=== PATIENT | male | born 1955 | race Caucasian/White ===

== ENCOUNTER 2017-06-11 08:38 | Inpatient (IN) | payer MEDICAID ==
[~2017-06-11] VITALS: Ht 170.2 cm; Wt 81.0 kg
[2017-06-11] VITALS (13 sets, daily range): BP systolic 104–172; BP diastolic 72–103; PULSE 56–84; RESP 15–21; TEMP 97–97.8; O2SAT 95–98
[~2017-06-11 08:38] MED LIST: ABAC1TAB3 PO; ATOR40TA PO; GABA300C3 PO; HYDR-2768 PO; PROP20TA3 PO; ZITH250T PO; ZOLP10TA3 PO
[2017-06-11] MEDS ORDERED: POTA10CA PO (08:57)
[2017-06-11] MEDS ORDERED: PROP20TA3 PO (08:57)
[2017-06-11] MEDS ORDERED: ABAC1TAB3 PO (08:57)
[2017-06-11] MEDS ORDERED: ATOR40TA16 PO (08:57)
[2017-06-11] MEDS ORDERED: ALPR0.5T3 PO (08:57)
[2017-06-11] MEDS ORDERED: ZOLP10TA3 PO (08:57)
[2017-06-11] MEDS ORDERED: HYDR25TA5 PO (08:57)
[2017-06-11] MEDS ORDERED: CETI10 PO (08:57)
[2017-06-11] MEDS ORDERED: GABA300C5 PO (08:57)
[2017-06-11] MEDS ORDERED: ASPIRIN 81 MG CHEW TAB PO ONE (09:00)
[2017-06-11] MEDS ORDERED: SODIUM CHLORIDE 0.9% FLUSH 10 ML FLUSH IVF PRN (09:00)
--- NOTE | 2017-06-11 09:29 | RADRPT ---
EXAM DATE/TIME: 06/11/2017 09:20 [place] COMPARISON: No previous studies available for comparison. INDICATIONS : Left chest pain for four days. MEDICAL HISTORY : Hypertension. HIV. SURGICAL HISTORY : Fusion, cervical. Neck cartilage surgery. ENCOUNTER: Initial ACUITY: 4 - 6 days PAIN SCORE: 7/10 LOCATION: Left chest FINDINGS: A single view of the chest demonstrates the lungs to be symmetrically aerated without evidence of mas s, infiltrate or effusion. The cardiomediastinal contours are unremarkable. Fixation hardware in th e lower cervical spine. Osseous structures are intact. CONCLUSION: 1. No acute cardiopulmonary disease. Karthik Bailey MD on June 11, 2017 at 9:26 Board Certified Radiologist. This report was verified electronically.
[2017-06-11 09:30] LABS: AUTOMATED NEUTROPHIL # 5.2 TH/MM3 (1.8-7.7); BASOPHIL # 0.1 TH/MM3 (0-0.2); BASOPHIL % 0.7 % (0.0-2.0); EOSINOPHIL # 0.3 TH/MM3 (0-0.4); EOSINOPHIL % 3.1 % (0.0-4.0); HEMATOCRIT 45.5 % (39.0-51.0); HEMOGLOBIN 16.1 GM/DL (13.0-17.0); LYMPH % 35.4 % (9.0-44.0); LYMPHOCYTE # 3.7 TH/MM3 (1.0-4.8); MEAN CELL VOLUME 86.7 FL (80.0-100.0); MEAN CORPUSCULAR HEMOGLOBIN 30.7 PG (27.0-34.0); MEAN CORPUSCULAR HGB CONC 35.4 % (32.0-36.0); MEAN PLATELET VOLUME 10.7 FL (7.0-11.0); MONO % 10.9 % (0.0-8.0); MONOCYTE # 1.1 TH/MM3 (0-0.9); NEUT % 49.9 % (16.0-70.0); PLATELET COUNT 190 TH/MM3 (150-450); RED BLOOD COUNT 5.25 MIL/MM3 (4.50-5.90); RED CELL DISTRIBUTION WIDTH 13.7 % (11.6-17.2); WHITE BLOOD COUNT 10.4 TH/MM3 (4.0-11.0)
[2017-06-11 09:38] LABS: PROTHROMBIN TIME - PATIENT 10.6 SEC (9.8-11.6)
--- NOTE | 2017-06-11 09:43 | PD ---
HPI Chief Complaint: Chest Pain Time Seen by Provider: 08:54 Travel History International Travel<30 days: No Contact w/Intl Traveler<30days: No Traveled to known affect area: No History of Present Illness HPI 62-year-old male with a history of hypertension, hyperlipidemia, HIV disease, presents today with complaints of intermittent chest pain since yesterday. Patient states that he has had fluttering sensation in his chest. He also reports that yesterday he had an episode of tightness and pain in his chest that nearly caused him to pass out. He states the pain radiated to his neck and jaw. There is no reported nausea or diaphoresis. Patient's not had pain like this before. The patient does have a family history of heart disease. He states his dad and brother of heart disease. States his brother in his 50s. The patient denies tobacco use. There are no other complaints at time of examination. 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) Allergies-Medications (Allergen,Severity, Reaction): Coded Allergies: No Known Allergies (Unverified Allergy, Unknown, 06/11/17) Reported Meds & Prescriptions Reported Meds & Active Scripts Active Reported Cetirizine (Cetirizine HCl) 10 Mg Tab 10 Mg PO DAILY Gabapentin 300 Mg Cap 300 Mg PO BID Alprazolam 0.5 Mg Tab 0.5 Mg PO Q4H PRN Potassium Chloride ER (Potassium Chloride) 10 Meq Cap 10 Meq PO DAILY Zolpidem (Zolpidem Tartrate) 10 Mg Tab 10 Mg PO HS PRN Atorvastatin (Atorvastatin Calcium) 40 Mg Tab 40 Mg PO HS Triumeq (Vysushjt-Iiifghyaqeaa-Gzlotujrqh) 600-50-300 Mg Tab 1 Tab PO DAILY Hazardous agent; use appropriate precautions for handling & disposal. Hydrochlorothiazide 25 Mg Tab 25 Mg PO DAILY Propranolol (Propranolol HCl) 20 Mg Tab 20 Mg PO DAILY Review of Systems Except as stated in HPI: all other systems reviewed are Neg General / Constitutional: No: Fever, Chills HENT: Positive: Neck Pain, Other (Jaw pain yesterday with the chest pain), No: Headaches Cardiovascular: Positive: Chest Pain or Discomfort (Earlier yesterday with the chest pain), Palpitations Respiratory: No: Cough, Shortness of Breath Gastrointestinal: No: Nausea, Vomiting Genitourinary: No: Frequency, Dysuria Musculoskeletal: No: Weakness, Pain Neurologic: No: Weakness, Dizziness, Headache, Change in Mentation Physical Exam Narrative GENERAL: Well-developed well-nourished male in no acute respiratory distress SKIN: Focused skin assessment warm/dry. HEAD: Atraumatic. Normocephalic. EYES: No scleral icterus. No injection or drainage. ENT: No nasal bleeding or discharge. Mucous membranes pink and moist. NECK: Trachea midline. No JVD. CARDIOVASCULAR: Regular rate and rhythm with occasional PVC. No murmur appreciated. RESPIRATORY: No accessory muscle use. Clear to auscultation. Breath sounds equal bilaterally. GASTROINTESTINAL: Abdomen soft, non-tender, nondistended. Hepatic and splenic margins not palpable. MUSCULOSKELETAL: No obvious deformities. No clubbing. No cyanosis. No edema. NEUROLOGICAL: Awake and alert. No obvious cranial nerve deficits. Motor grossly within normal limits. Normal speech. Data Data Last Documented VS Vital Signs Date Time Temp Pulse Resp B/P (MAP) Pulse Ox O2 Delivery O2 Flow Rate FiO2 06/11/17 11:06 58 16 171/90 (117) 97 Room Air 06/11/17 08:41 97.3 Orders Orders Electrocardiogram (06/11/17 08:54) Basic Metabolic Panel (Bmp) (06/11/17 08:54) Ckmb (Isoenzyme) Profile (06/11/17 08:54) Complete Blood Count With Diff (06/11/17 08:54) Magnesium (Mg) (06/11/17 08:54) Prothrombin Time / Inr (Pt) (06/11/17 08:54) Act Partial Throm Time (Ptt) (06/11/17 08:54) Troponin I (06/11/17 08:54) Chest, Single Ap (06/11/17 08:54) Ecg Monitoring (06/11/17 08:54) Bilateral Bp Monitoring (06/11/17 08:54) Iv Access Insert/Monitor (06/11/17 08:54) Oximetry (06/11/17 08:54) Oxygen Administration (06/11/17 08:54) Aspirin Chew (Aspirin Chew) (06/11/17 09:00) Sodium Chloride 0.9% Flush (Ns Flush) (06/11/17 09:00) CKMB (06/11/17 09:15) CKMB% (06/11/17 09:15) Cardiac Catheterization (06/11/17 ) Heparin Inj (Heparin Inj) (06/11/17 10:45) Heparin-D5w 25,000 U/250 Ml (Heparin-D5w (06/11/17 11:00) Cbc No Diff, Includes Plts (06/14/17 06:00) Act Partial Throm Time (Ptt) (06/11/17 17:39) Occult Blood (Hemoccult) Stool (06/11/17 10:39) Nitroglycerin 2% Oint (Nitroglycerin 2% (06/11/17 10:45) Admit To Inpatient (06/11/17 ) Ckmb (Isoenzyme) Profile (06/11/17 10:51) Ckmb (Isoenzyme) Profile (06/11/17 16:51) Ckmb (Isoenzyme) Profile (06/11/17 22:51) Troponin I (06/11/17 10:51) Troponin I (06/11/17 16:51) Troponin I (06/11/17 22:51) Electrocardiogram (06/11/17 10:51) Electrocardiogram (06/11/17 16:51) Electrocardiogram (06/11/17 22:51) ^ Obtain As Needed (06/11/17 10:51) Diet Npo Except Meds (06/11/17 Lunch) Activity Bed Rest With Brp (06/11/17 10:51) ^ Notify Of These Side Effects (06/11/17 10:51) Notify Dr: Blood Pressure (06/11/17 10:51) Notify Dr: Heart Rate (06/11/17 10:51) Teaching Record: Cardiac Educa MEHUL.Q12H (06/11/17 10:51) ^ Smoking Cessation Counseling (06/11/17 10:51) Sodium Chloride 0.9% Flush (Ns Flush) (06/11/17 21:00) Sodium Chloride 0.9% Flush (Ns Flush) (06/11/17 11:00) Nitroglycerin Sl (Nitrostat Sl) (06/11/17 11:00) Morphine Inj (Morphine Inj) (06/11/17 11:00) Docusate Sodium (Colace) (06/11/17 11:00) Ondansetron Inj (Zofran Inj) (06/11/17 11:00) Mechanical Energy Engineer / Telemetry MEHUL.Q8H (06/11/17 10:51) Metoprolol Tartrate (Lopressor) (06/11/17 21:00) Atorvastatin (Lipitor) (06/11/17 21:00) Scd Bilateral/Knee High MEHUL.BID (06/11/17 10:51) Inpatient Certification (06/11/17 ) Lipid Profile (06/11/17 10:51) Aspirin Ec (Ecotrin Ec) (06/12/17 09:00) Admit Order (Ed Use Only) (06/11/17 11:16) Labs Laboratory Tests Test 06/11/17 09:15 White Blood Count 10.4 TH/MM3 Red Blood Count 5.25 MIL/MM3 Hemoglobin 16.1 GM/DL Hematocrit 45.5 % Mean Corpuscular Volume 86.7 FL Mean Corpuscular Hemoglobin 30.7 PG Mean Corpuscular Hemoglobin Concent 35.4 % Red Cell Distribution Width 13.7 % Platelet Count 190 TH/MM3 Mean Platelet Volume 10.7 FL Neutrophils (%) (Auto) 49.9 % Lymphocytes (%) (Auto) 35.4 % Monocytes (%) (Auto) 10.9 % Eosinophils (%) (Auto) 3.1 % Basophils (%) (Auto) 0.7 % Neutrophils # (Auto) 5.2 TH/MM3 Lymphocytes # (Auto) 3.7 TH/MM3 Monocytes # (Auto) 1.1 TH/MM3 Eosinophils # (Auto) 0.3 TH/MM3 Basophils # (Auto) 0.1 TH/MM3 CBC Comment DIFF FINAL Differential Comment Prothrombin Time 10.6 SEC Prothromb Time International Ratio 1.0 RATIO Activated Partial Thromboplast Time 25.5 SEC Blood Urea Nitrogen 20 MG/DL Creatinine 1.11 MG/DL Random Glucose 116 MG/DL Calcium Level 9.6 MG/DL Magnesium Level 2.2 MG/DL Sodium Level 140 MEQ/L Potassium Level 3.6 MEQ/L Chloride Level 105 MEQ/L Carbon Dioxide Level 27.1 MEQ/L Anion Gap 8 MEQ/L Estimat Glomerular Filtration Rate 67 ML/MIN Total Creatine Kinase 266 U/L Creatine Kinase MB 19.0 NG/ML Troponin I 5.21 NG/ML MDM Medical Decision Making Medical Screen Exam Complete: Yes Emergency Medical Condition: Yes Differential Diagnosis ACS versus dysrhythmia versus musculoskeletal pain Narrative Course 62-year-old male with a history of hypertension, hyperlipidemia, HIV disease, presents today with complaints of chest pressure intermittent since yesterday. The patient also reports palpitations and fluttering in his chest. Patient's EKG showed sinus rhythm with flipped T waves in V2 3 and 4. Patient had no evidence of ST elevation. Patient's troponin came back at 5. The patient was not having chest pain at the time of my evaluation. This is a non-ST elevation myocardial infarction. He has been started on heparin and nitroglycerin paste. He is also been given aspirin on arrival. Case was discussed with Dr. hunter , on-call kiln head house operator, who will see him in consultation and likely taken to the [facility] this afternoon. The patient was admitted to Dr. Maddox, [place], who agreed to admit the patient to her service. He will be made n.p.o. Critical Care Narrative Aggregate critical care time was 45 minutes. Time to perform other separately billable procedures was not included in the critical care time. My time did not include minutes spent treating any other patients simultaneously or on activities that did not directly contribute to the patient's treatment. The services I provided to this patient were to treat and/or prevent clinically significant deterioration that could result in: I provided critical care services requiring my management, as noted below: Chart data review, documentation time, medication orders and management, vital sign assessments/reviewing monitor data, ordering and reviewing lab tests, ordering and interpreting/reviewing x-rays and diagnostic studies, care of the patient and discussion of the patient with the admitting physicians. Diagnosis Primary Impression: NSTEMI (non-ST elevated myocardial infarction) Additional Impressions: History of hypertension History of hyperlipidemia HIV by history Admitting Information Admitting Physician Requests: Admit Norbert Medley MD Jun 11, 2017 09:43
[2017-06-11 09:47] LABS: BICARBONATE 27.1 MEQ/L (21.0-32.0); BLOOD UREA NITROGEN 20 MG/DL (7-18); CALCIUM 9.6 MG/DL (8.5-10.1); CHLORIDE 105 MEQ/L (98-107); CREATININE 1.11 MG/DL (0.60-1.30); GLOMERULAR FILTRATION RATE 67 ML/MIN (>89); GLUCOSE,RANDOM 116 MG/DL (74-106); MAGNESIUM 2.2 MG/DL (1.5-2.5); SODIUM (NA) 140 MEQ/L (136-145)
[2017-06-11 10:03] LABS: TROPONIN I 5.21 NG/ML (0.02-0.05)
[2017-06-11] MEDS ORDERED: HEPARIN-D5W 25,000 U/250 ML 250 ML IV PRN ×2 (10:45→11:00)
[2017-06-11] MEDS ORDERED: NITROGLYCERIN 2% OINT 1 GM PACKET TOPICAL ONE (10:45)
[2017-06-11] MEDS ORDERED: HEPARIN SODIUM - IV 10,000 UNITS/10 ML VIAL IV ONE (10:45)
[2017-06-11] MEDS ORDERED: NITROGLYCERIN 0.4 MG SL 25 TABS/BTL SL PRN (11:00)
[2017-06-11] MEDS ORDERED: DOCUSATE SODIUM 100 MG CAP PO PRN (11:00)
[2017-06-11] MEDS ORDERED: SODIUM CHLORIDE 0.9% FLUSH 10 ML FLUSH IV FLUSH PRN (11:00)
[2017-06-11] MEDS ORDERED: ONDANSETRON HCL 4 MG/2 ML VIAL IV PUSH PRN (11:00)
[2017-06-11] MEDS ORDERED: MORPHINE SULFATE 4 MG/ML INJ IV PUSH PRN (11:00)
[2017-06-11] MEDS ORDERED: PILL SPLITTER OTHER PRN (11:30)
[2017-06-11 13:24] LABS: TROPONIN I 7.66 NG/ML (0.02-0.05)
[2017-06-11] MEDS ORDERED: LIDOCAINE HCL 1% PF 30 ML VIAL ONE (14:15)
[2017-06-11] MEDS ORDERED: HEPARIN-NS/PF FLUSH BAG 2,000 ML IV FLUSH ONE (14:16)
[2017-06-11] MEDS ORDERED: MIDAZOLAM HCL 2 MG/2 ML VIAL ONE (14:16)
[2017-06-11] MEDS ORDERED: HEPARIN SODIUM - IV 10,000 UNITS/10 ML VIAL ONE (14:17)
[2017-06-11] MEDS ORDERED: NITROGLYCERIN INJ 5 ML ONE (14:17)
[2017-06-11] MEDS ORDERED: MIDAZOLAM HCL 5 MG/5 ML VIAL ONE (14:25)
[2017-06-11] MEDS ORDERED: TICAGRELOR 90 MG TAB PO ONE (15:33)
--- NOTE | 2017-06-11 15:59 | CATHPROC ---
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 Ginette Alicea,LUIS Recorder yKlee Paredes,RT(R) Scrub Galindo Harley RCIS(BS) Procedures Performed Procedure Location (Site) Vessel Name Angiogram LV LV Ventricle Coronary Angiograms LCA Left Coronary Coronary Angiograms RCA Right Coronary Drug Eluting Inflatio LAD Mid Left Coronary Drug Eluting Inflatio LAD Prox Left Coronary L Heart Cath PTCA LAD Mid Left Coronary PTCA LAD Prox Left Coronary Wire insertion Fem Art (right) Femoral Art Equipment Time Bearing 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 DANYA MEDICAL ANGIOSEAL, FR6 VIP FR 6 Used *[id number] 14:00 MEDLINE INDUSTRIES PACK, CCL CUSTOM * Used *[id number] 14:00 Koko PACER PEN, SKIN DUAL W/ RULER * Used *[id number] 14:36 MEDTRONIC AR MOD DXTERITY CATHETER FR 5 [id number] 14:57 MEDTRONIC BALLOON, 2.0 X 20MM EUPHORA 20MM Used *[id number] 15:05 MEDTRONIC STENT, 2.5 34MM HENRI 2.5 34MM Used *[id number] 15:08 MEDTRONIC STENT, 2.5 34MM HENRI 2.5 34MM Used *[id number] 15:17 MEDTRONIC STENT, 2.75 22MM HENRI 2.75 22MM Used *[id number] 14:59 Dreamscape Blue MEDICAL 30 JENN INDEFLATOR Used *[id number] 14:49 Dreamscape Blue MEDICAL SHEATH, FR6.5 PRELUDE 11CM FR 6.5 [id number] Used *[id number] 14:00 Dreamscape Blue MEDICAL WIRE, 3MMJ .035 180CM 180CM Used *[id number] PROBE COVER, STERILE [id number] 14:00 JML [employer] * Used ULTRASOUND W/ GEL *[id number] 14:00 NAMIC MANIFOLD, 4 PORT * Used *[id number] 14:00 NAMIC TUBING, HIGH PRESSURE 48" 48" Used *[id number] 15:39 NAMIC TUBING, HIGH PRESSURE 48" 48" Used *[id number] 14:00 NYCOMED OMNIPAQUE, 350 MG, 150ML 150ML [id number] Used 14:38 NYCOMED OMNIPAQUE, 350 MG, 50ML 50ML [id number] Used [id number] 14:00 [facility] BLANKET,WARM AIR CCL * Used *[id number] 14:00 TERUMBoxed MEDICAL SHEATH, FR5 TERUMO (10CM) FR 5 Used *[id number] Equipment Model, Serial, Lot Number and Expiration Data Description Model Number Serial Number Lot Number Expiration Da te ANGIOSEAL, FR6 VIP [id number] 02-11-2018 AR MOD DXTERITY CATHETER [id number] 03-26-2020 SHEATH, FR6.5 PRELUDE 11CM [id number] 05-12-2020 STENT, 2.5 34MM HENRI [id number] 12-19-2018 STENT, 2.5 34MM HENRI [id number] 01-13-2019 STENT, 2.75 22MM HENRI [id number] 12-30-2018 History: Current Medications Medication Dosage/Unit Route Frequency Last Date/Time Taken ASA Statins (any) Beta Bronwyn History: Allergies Allergy Reaction No Known Allergies History: Risk Factors Family History of Hypertension Dyslipidemia Previous KS Previous Heart Failure Premature CAD Yes Yes Yes No No Prior Valve Prior PCI Prior CABG Surgery No No No Cerebrovascular Peripheral Artery Chronic Lung On Dialysis Diabetes Disease Disease Disease No No Yes No No History: Stress Tests Stress or Imaging Studies Performed No History: Other Current Smoker Method Quit Packs a Day Years Used Pack Years No Cigarettes 7 Years Ago 1 20 20 Labs Hgb (g/dl) Hct (%) WBC (l/cumm) Platelets (thousands) 11.60-17.00 35.00-51.00 4.00-11.00 150.00-450.00 16.1 45.5 10.4 190 Glucose (mg/dl) BUN (mg/dl) Creatinine (mg/dl) BUN:Creatinine (1:x) 74.00-106.00 7.00-18.00 0.50-1.30 10.00-20.00 116 20 1.1 18.2 Na (meq/l) K (meq/l) 136.00-145.00 3.50-5.10 140 3.6 Troponin I (ng/ml) CPK (u/l) CPK-MB (ng/ML) 0.02-0.05 26.00-308.00 0.50-3.60 7.66 309 9.1 Medication Medication Total Dose (Bolus/Oral) Medication Total Dosage/Unit 1% XYLOCAINE 20 mL BRILINTA 180 mg FENTANYL 75 mcg HEPARIN 5000 units NTG (IC) 400 mcg OXYGEN 4 l/min VERSED 4 mg Medications (Bolus/Oral) Medication Time Given Dosage/Unit Administered By Reason VERSED 06/11/2017 2:25:20 PM 2 mg Ginette Alicea 2 mg VERSED given in lab by Ginette Alicea RN in Left Antecubital via Peripheral IV. Ordered by Cole Mehta. FENTANYL 06/11/2017 2:25:27 PM 50 mcg Ginette Alicea 50 mcg FENTANYL given in lab by Ginette Alicea RN in Left Antecubital via Peripheral IV. Ordered by Cole More. VERSED 06/11/2017 2:28:32 PM 2 mg Ginette Alicea 2 mg VERSED given in lab by Ginette Alicea RN in Left Antecubital via Peripheral IV. Ordered by Cole Mehta. FENTANYL 06/11/2017 2:29:39 PM 25 mcg Ginette Alicea 25 mcg FENTANYL given in lab by Ginette Alicea RN in Left Antecubital via Peripheral IV. Ordered by Cole More. OXYGEN 06/11/2017 2:34:10 PM 4 l/min Ginette Alicea 4 l/min OXYGEN given in lab by Ginette Alicea RN via Nasal. Ordered by Cole More. 1% XYLOCAINE 06/11/2017 2:34:22 PM 20 mL Quadrat, [place] 20 mL 1% XYLOCAINE given in lab by Cole More in Right Groin via Subcutaneous. HEPARIN 06/11/2017 2:52:04 PM 5000 units Ginette Alicea 5000 units HEPARIN given in lab by Ginette Alicea, RN in Left Antecubital via Peripheral IV. Ordered by Cole More. NTG (IC) 06/11/2017 3:23:53 PM 200 mcg Cole More 200 mcg NTG (IC) given in lab by Cole More in Right Groin via Intra-coronary. NTG (IC) 06/11/2017 3:25:20 PM 200 mcg Cole More 200 mcg NTG (IC) given in lab by Cole More in Right Groin via Intra-coronary. BRILINTA 06/11/2017 3:40:00 PM 180 mg Ginette Alicea 180 mg BRILINTA given in lab by Ginette Alicea, RN via Oral. Ordered by Cole More. Medication (Drip) Medication Time Given Dosage/Unit Concentration/Unit Diluent (ml) Solution IV Solutions 06/11/2017 2:12:53 PM 50 mL (IV) NaCl .9 IV Solutions given in lab by Ginette Alicea, LUIS in Left Antecubital via Peripheral IV. Pump/Drip Jeff w using NaCl .9. Initial Case Assessment Cardiovascular HR Rhythm NIBP Chest Pain 70 SR 165/100 2 Edema Present Skin color Skin None Normal Warm Dry Circulatory - Right Pulses Dorsalis Pedis Femoral 2 2 Scale (0,1,2,3,4,d) Circulatory - Left Pulses Dorsalis Pedis Femoral 2 2 Scale (0,1,2,3,4,d) Neurological State Oriented to time-place- Alert Moves all extremities person Respiration - General Respiration Rate SpO2 (%) (B/min) 12 97 Final Case Assessment Cardiovascular HR Rhythm NIBP Chest Pain 70 SR 165/100 2 Edema Present Skin color Skin None Normal Warm Dry Circulatory - Right Pulses Dorsalis Pedis Femoral 2 2 Scale (0,1,2,3,4,d) Circulatory - Left Pulses Dorsalis Pedis Femoral 2 2 Scale (0,1,2,3,4,d) Neurological State Oriented to time-place- Alert Moves all extremities person Respiration - General Respiration Rate SpO2 (%) (B/min) 12 97 Chronological Log Time Study Chronological Log 14:12:29 Patient arrived via Bed. 14:12:30 Patient Name, D.O.B, / Armband Verified By R.N. 14:12:30 Consent signed by the physician and the patient and verified by the Painting Instructor staff. 14:12:31 Pre-op and post- op instructions given; patient acknowledges understanding of instructions. 14:12:32 Verbal Stimulation=2 Physical Stimulation=2 Airway=2 Respiration=2 TOTAL=8. (0=absent, 1=li mited, 2=present) 14:12:34 Presedation assessment performed by Painting Instructor RN. 14:12:37 Patient has been NPO for More than 6Hrs. 14:12:38 Skin Breakdown- none per pt 14:12:40 Patient Warmer Placed on the Table. 14:12:41 Shelly Prominences Protected 14:12:42 A # 20 IV was noted in the Antecubital (left). Grade = 0 14:12:53 IV Solutions given in lab by Ginette Alicea RN in Left Antecubital via Peripheral IV. Pum p/Drip Flow using NaCl .9. 14:12:54 History and physical on the chart or being dictated. Assessment: Initial Case, HR=70 BPM, Rhythm=SR, NQUC=985/100 mmhg, Chest Pain=2, Edema=None, Color=Normal, Skin = Warm, Dry Right Pulses: Chris Ped=2, Femoral=2 14:12:55 Left Pulses: Chris Ped=2, Femoral=2 Neurological: State=Alert, Ox3, BLACKWELL Respiration: Resp=12 B/min, SpO2=97 % Vitals capture started with the following parameters, Patient=Adult, Interval=5 min, Initial Pr rokgzu=066 mmHg, 14:17:26 Deflation Rate=5 mmHg, Cuff placed on Right Arm 14:18:05 HR=70 bpm, JLOB=135/100 mmhg, SpO2=97.0 %, Resp=12 B/min 14:22:10 paged 14:22:14 Bilateral groins prepped with 2% chlorhexidine, and draped after a 3 minute waiting time. 14:22:27 Reference ECG taken 14:24:04 HR=69 bpm, WCDU=892/102 mmhg, SpO2=98.0 %, Resp=12 B/min 14:25:20 2 mg VERSED given in lab by Ginette Alicea RN in Left Antecubital via Peripheral IV. Orde red by Cole More. 50 mcg FENTANYL given in lab by Ginette Alicea RN in Left Antecubital via Peripheral IV. Orde red by Argenis, 14:25:27 Cole. 14:28:15 HR=64 bpm, QRDV=171/102 mmhg, SpO2=98.0 %, Resp=11 B/min 14:28:15 Pressure channel 1 zeroed. 14:28:32 2 mg VERSED given in lab by Ginette Alicea RN in Left Antecubital via Peripheral IV. Orde red by Cole More. 25 mcg FENTANYL given in lab by Ginette Alicea RN in Left Antecubital via Peripheral IV. Orde red by Argenis, 14:29:39 Cole. Time Out. Correct patient, correct procedure, correct physician, power injector loaded with con trast with surgical team 14:32:53 present. Time Out Concurred by MD and individual staff in procedure. 14:33:12 HR=49 bpm, RNFE=316/81 mmhg, SpO2=87.0 %, Resp=20 B/min 14:33:53 Case Start 14:34:10 4 l/min OXYGEN given in lab by Ginette Alicea RN via Nasal. Ordered by Cole More. 14:34:22 20 mL 1% XYLOCAINE given in lab by Cole More in Right Groin via Subcutaneous. 14:34:45 Access site was Right Femoral Artery via ultrasound. 14:34:57 A SHEATH, FR5 TERUMO (10CM) FR 5 was advanced into the Fem Art (right) using the Percutaneo us technique. A PIGTAIL ANG. INFINITI CATHETER FR 5 was advanced over a wire. OMNIPAQUE, 350 MG, 150ML 150ML was used 14:36:37 for injections. Recorded Pressure: LV, HR=58, Condition=Condition 1 14:37:39 (Left Ventricle) LV 128/9/14 14:38:02 The LV was injected at 10 cc/sec for a total of 30. OMNIPAQUE, 350 MG, 50ML 50ML used. 14:38:09 HR=55 bpm, MHBL=872/78 mmhg, SpO2=98.0 %, Resp=11 B/min 14:40:21 Catheter was removed A JL 4.0 INFINITI CATHETER FR 5 was advanced over a wire. OMNIPAQUE, 350 MG, 150ML 150ML was us ed for 14:40:41 injections. 14:41:14 The LCA was injected and visualized at various angles. OMNIPAQUE, 350 MG, 150ML 150ML used . Recorded Pressure: Ao, HR=58, Condition=Condition 1 14:41:39 (Aorta) Ao 127/75/96 14:43:08 HR=43 bpm, FBNP=492/77 mmhg, SpO2=98.0 %, Resp=11 B/min 14:46:17 Catheter was removed A AR MOD DXTERITY CATHETER FR 5 was advanced over a wire. OMNIPAQUE, 350 MG, 150ML 150ML was us ed for 14:46:54 injections. 14:47:47 The RCA was injected and visualized at various angles. OMNIPAQUE, 350 MG, 150ML 150ML used . 14:48:53 HR=58 bpm, GQGM=136/85 mmhg, SpO2=98.0 %, Resp=11 B/min 14:49:49 Catheter was removed A SHEATH, FR6.5 PRELUDE 11CM FR 6.5 was exchanged in the Fem Art (right). This was necessary in order to 14:49:51 accomodate a larger catheter. 14:50:18 Activated Clotting Time Drawn A XBLAD 4.0 GUIDE CATHETER FR 6 was advanced over a wire. OMNIPAQUE, 350 MG, 150ML 150ML was us ed for 14:51:58 injections. 5000 units HEPARIN given in lab by Ginette Alicea, LUIS in Left Antecubital via Peripheral IV. O rdered by Argenis, 14:52:04 Cole. 14:53:04 HR=56 bpm, YYWT=938/92 mmhg, SpO2=97.0 %, Resp=11 B/min 14:54:14 ACT (Normal Range 90-180) = 170 14:54:23 A WIRE, BALANCE MIDDLEWEIGHT 190CM 190CM was inserted via Fem Art (right). 14:55:15 Interventional wire has crossed the lesion A BALLOON, 2.0 X 20MM EUPHORA 20MM was inserted over WIRE, BALANCE MIDDLEWEIGHT 190CM 190CM via the 14:57:47 Fem Art (right). 14:58:14 HR=41 bpm, RTCV=739/65 mmhg, SpO2=98.0 %, Resp=11 B/min A BALLOON, 2.0 X 20MM EUPHORA 20MM over a WIRE, BALANCE MIDDLEWEIGHT 190CM 190CM in the LAD Mid was 14:58:32 inflated using a 30 JENN INDEFLATOR at 16 jenn for 10 sec. A BALLOON, 2.0 X 20MM EUPHORA 20MM over a WIRE, BALANCE MIDDLEWEIGHT 190CM 190CM in the LAD Mid was 14:58:50 inflated using a 30 JENN INDEFLATOR at 16 jenn for 10 sec. A BALLOON, 2.0 X 20MM EUPHORA 20MM over a WIRE, BALANCE MIDDLEWEIGHT 190CM 190CM in the LAD Mid was 14:59:07 inflated using a 30 JENN INDEFLATOR at 16 jenn for 10 sec. A BALLOON, 2.0 X 20MM EUPHORA 20MM over a WIRE, BALANCE MIDDLEWEIGHT 190CM 190CM in the LAD Pro x was 14:59:19 inflated using a 30 JENN INDEFLATOR at 16 jenn for 10 sec. A BALLOON, 2.0 X 20MM EUPHORA 20MM over a WIRE, BALANCE MIDDLEWEIGHT 190CM 190CM in the LAD Pro x was 14:59:42 inflated using a 30 JENN INDEFLATOR at 16 jenn for 10 sec. 14:59:56 Balloon Removed. 15:00:55 Activated Clotting Time Drawn 15:03:09 HR=48 bpm, OTDX=230/69 mmhg, SpO2=94.0 %, Resp=11 B/min A STENT, 2.5 34MM HENRI 2.5 34MM was advanced through a XBLAD 4.0 GUIDE CATHETER FR 6 over a WIR E, 15:04:51 BALANCE MIDDLEWEIGHT 190CM 190CM. A STENT, 2.5 34MM HENRI 2.5 34MM was deployed using a 30 JENN INDEFLATOR at 12 atmospheres for 35 seconds in 15:05:42 the LAD Mid. 15:06:00 Delivery device removed 15:07:34 ACT (Normal Range 90-180) = 336 15:08:08 HR=58 bpm, YVBK=264/78 mmhg, SpO2=96.0 %, Resp=12 B/min A STENT, 2.5 34MM HENRI 2.5 34MM was advanced through a XBLAD 4.0 GUIDE CATHETER FR 6 over a WIR E, 15:10:30 BALANCE MIDDLEWEIGHT 190CM 190CM. A STENT, 2.5 34MM HENRI 2.5 34MM was deployed using a 30 JENN INDEFLATOR at 12 atmospheres for 20 seconds in 15:10:37 the LAD Prox. 15:11:14 Re-inflated the stent balloon in the LAD Prox to 13 JENN for 15 seconds. 15:13:05 HR=53 bpm, WEIR=013/78 mmhg, SpO2=98.0 %, Resp=12 B/min 15:16:17 Delivery device removed A STENT, 2.75 22MM HENRI 2.75 22MM was advanced through a XBLAD 4.0 GUIDE CATHETER FR 6 over a W SO, 15:16:21 BALANCE MIDDLEWEIGHT 190CM 190CM. 15:18:08 HR=52 bpm, UEMU=848/82 mmhg, SpO2=98.0 %, Resp=11 B/min A STENT, 2.75 22MM HENRI 2.75 22MM was deployed using a 30 JENN INDEFLATOR at 12 atmospheres for 30 seconds 15:20:17 in the LAD Prox. 15:21:23 Re-inflated the stent balloon in the LAD Prox to 15 JENN for 15 seconds. 15:22:37 Re-inflated the stent balloon in the LAD Prox to 12 JENN for 10 seconds. 15:23:24 Delivery device removed 15:23:44 HR=52 bpm, EXDP=089/82 mmhg, SpO2=98.0 %, Resp=8 B/min 15:23:53 200 mcg NTG (IC) given in lab by Cole More in Right Groin via Intra-coronary. 15:25:10 Wire removed 15:25:20 200 mcg NTG (IC) given in lab by Cole More in Right Groin via Intra-coronary. 15:26:53 Catheter was removed 15:28:00 Case End 15:28:12 HR=53 bpm, DCNN=423/69 mmhg, SpO2=95.0 %, Resp=9 B/min 15:28:17 An injection in the Fem Art (right) was made through the SHEATH, FR6.5 PRELUDE 11CM FR 6.5 . Assessment: Final Case, HR=70 BPM, Rhythm=SR, HLXV=334/100 mmhg, Chest Pain=2, Edema=None, Col or=Normal, Skin = Warm, Dry Right Pulses: Chris Ped=2, Femoral=2 15:31:46 Left Pulses: Chris Ped=2, Femoral=2 Neurological: State=Alert, Ox3, BLACKWELL Respiration: Resp=12 B/min, SpO2=97 % 15:31:54 Catheter(s) removed without difficulty 15:31:58 ANGIOSEAL, FR6 VIP FR 6 placement in the Fem Art (right) 15:32:10 Sterile dressing applied to site 15:32:15 No case complications noted. 15:32:17 Cine recording checked. 15:32:20 Bedside Report will be given. 15:32:28 Implantable Device card placed in patient's chart. 15:32:40 A Left Heart Cath was performed. 15:33:07 HR=53 bpm, TQQI=002/89 mmhg, SpO2=97.0 %, Resp=20 B/min 15:38:08 RIZY=464/87 mmhg 15:38:44 Vitals capture stopped. 15:40:00 180 mg BRILINTA given in lab by Gniette Alicea, LUIS via Oral. Ordered by Cole More. 15:43:52 Patient moved to [facility] End Study - Contrast Media Used In Study Contrast Total Opened (mL) Total Used (mL) Total Wasted (mL) Omnipaque 250 250 0 End Study - Maximum Contrast Load Max Contrast Load (mL) 361.4 End Study - Radiation Exposure Fluoro Time (minutes) 10.0 End Study - Patient Disposition Complications Transferred To Interventional Outcome No Critical Care Bed successful
[2017-06-11] MEDS ORDERED: SODIUM CHLOR 0.9% 1000 ML INJ 1,000 ML IV SCH (16:06)
[2017-06-11] MEDS ORDERED: MISC INFORMATION XX ONE (16:15)
--- NOTE | 2017-06-11 16:15 | MB ---
cc: Cole More MD DATE: 06/11/2017 HISTORY OF PRESENT ILLNESS: A 62-year-old white male with history of hypertension, dyslipidemia, HIV disease, who started having substernal chest discomfort radiating into his neck and into his jaw approximately 3 days ago. He describes the pain as tightness and was associated with fluttering in his chest. The pain was so severe that he almost passed out. He has had intermittent episodes of chest pain over the last 3 days. PAST MEDICAL HISTORY: Positive for hypertension, dyslipidemia, the patient is HIV positive, history of prostate surgery. MEDICATIONS: Include cetirizine, gabapentin, alprazolam, potassium, zolpidem, atorvastatin, Triumeq, hydrochlorothiazide and propranolol. ALLERGIES: NONE. SOCIAL HISTORY: The patient does not smoke. He quit drinking 10 years ago. 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 FAMILY HISTORY: Strongly positive for heart disease. His father and his brother both of heart disease. REVIEW OF SYSTEMS: Otherwise negative. PHYSICAL EXAMINATION: VITAL SIGNS: Blood pressure 157/91, pulse 56 and regular. HEENT: Negative, 2+ carotid upstrokes, no bruits. LUNGS: Clear. HEART: Regular with no murmur, gallop or rub. ABDOMEN: Soft. No bruits. EXTREMITIES: Without edema, 2+ distal pulses. NEUROLOGIC: Grossly nonfocal. DIAGNOSTIC DATA: EKG was reviewed and showed normal sinus rhythm, normal axis and intervals, PVCs, interventricular conduction delay and mild nonspecific STT changes. LABORATORY DATA: Hemoglobin 16.1. Potassium 3.6, creatinine 1.1, magnesium 2.2. CK 266 and 309, troponin 5.21 and 7.66. DIAGNOSES: 1. Non-ST elevation myocardial infarction. 2. Hypertension. 3. Dyslipidemia. 4. Human immunodeficiency virus disease. 5. Strong family history of coronary artery disease. DISPOSITION: Mr. Last will undergo cardiac catheterization and coronary intervention if necessary today. He understands the risks and benefits, and wishes to proceed. Cole More MD OQ/SB , 03:58 PM , 04:[address] [facility]
[2017-06-11] MEDS: LISINOPRIL 5 MG TAB PO SCH (16:22)
--- NOTE | 2017-06-11 16:49 | MR ---
cc: Cole More MD DATE: 06/11/2017 INDICATIONS: Non-ST elevation myocardial infarction, congestive heart failure, cardiomyopathy. PROCEDURES PERFORMED: 1. Retrograde left heart catheterization with left ventriculography and selective coronary angiography. 2. Angioplasty and stenting of the proximal and mid left anterior descending coronary artery. 3. Moderate sedation. ACCESS SITE: Right femoral artery. EQUIPMENT USED: A 5-Lithuanian pigtail catheter, 5-Fr JL4 and AR modified coronary catheters. XB 4.0 guide, BMW wire, 2.0 x 20 mm balloon for predilatation, 2.5 x 34 mm Mason stent at 12 atmospheres in the mid LAD, 2.5 x 34 mm Mason at 13 atmospheres to the proximal-mid LAD in an overlapping manner and 2.75 x 22 mm Mason at 15 atmospheres to the proximal LAD in an overlapping manner. MEDICATIONS: Versed IV, fentanyl IV, heparin IV, nitroglycerin IC, Brilinta 180 mg p.o. CONTRAST: Omnipaque to 250 mL. COMPLICATIONS: None. BLOOD LOSS: Less than 10 mL. METHOD OF HEMOSTASIS: Angio-Seal closure. RESULTS: HEMODYNAMICS: Heart rate 80 beats per minute. Left ventricular end diastolic pressure 80 mmHg. Left ventricle 120/8. Aorta 120/75/95. Left ventricular ejection fraction 30%, wall motion, anterior and apical severe hypokinesis, no mitral regurgitation. CORONARY ANGIOGRAPHY: Left main coronary artery patent. Left anterior descending coronary artery has 99% stenosis in the proximal portion and 80% stenosis in the mid portion. First diagonal artery is totally occluded. Second diagonal artery has 80% ostial stenosis. Left circumflex artery is a dominant vessel with 40% stenosis in the mid portion. OM1 has 50% ostial stenosis. OM2 has 90% stenosis. OM3 has 50% stenosis. OM4 is patent. Left PDA is patent. Right coronary artery has 70% stenosis in the mid portion and 99% ostial stenosis of right ventricular branch. The stenosis in the mid LAD: lesion length 15 mm. Pre-KAYLA flow 2, post-KAYLA flow 3, post-stenosis 0. Stenosis in the proximal LAD: lesion length 25 mm. Pre-KAYLA flow 2, post-KAYLA flow 3, post-stenosis 0. Post-intervention angiography revealed excellent patency of the stented segment and no evidence of dissection, thrombosis, or distal embolization. DIAGNOSES: 1. Coronary artery disease with severe stenosis of the proximal and mid left anterior descending artery. 2. Moderate to severe left ventricular dysfunction consistent with ischemic cardiomyopathy. 3. Successful angioplasty and stenting of the proximal and mid left anterior descending artery. DISPOSITION: Mr. Last will continue Brilinta for at least 1 year and baby aspirin indefinitely. We will titrate aggressive modification of his cardiac risk factors. He will be monitored on telemetry after his procedure. MD GAY Morgan/DONNELL , 04:03 PM , 04:48 PM KARIN
[2017-06-11] MEDS ORDERED: IOHEXOL 350 MG/ML 50 ML BTL (for Cath Lab) OTHER ONE (17:34)
[2017-06-11] MEDS ORDERED: IOHEXOL 350 MG/ML 100 ML BTL (for Cath Lab) OTHER ONE (17:34)
--- NOTE | 2017-06-11 17:57 | HHI.HP ---
[facility] Jaime De MD Admission Diagnosis NSTEMI, htn, hyperlipedemia, hiv Diagnoses: Travel History International Travel<30 Days: No Contact w/Intl Traveler <30 Da: No Traveled to Known Affected Are: No History of Present Illness Patient is a 62-year-old male with past medical history of HIV for 20 years, hyperlipidemia, anxiety, hypertension presented to the emergency room with complaints of chest pressure. He states that it started 3 days ago while he was at the [employer] he started experiencing some jaw achiness, he felt winded and fatigued and at times confused. He also felt his heart palpitating which made him somewhat drowsy and then confused but then he would clear up. He did complain of some radiation to his jaw and ear. He initially thought it was due to indigestion but did not think much of it. Yesterday he was tugging on a stick with his dog and ended up dropping on the floor because he felt like his "heart would pop out" into his chest,he felt hot water in his ears and also experienced chest pressure. He did also admit to experiencing some diaphoresis associated with his symptoms. He finally decided to come to the emergency room for further evaluation. Currently he is status post cardiac catheterization. He denies any chest pain, shortness of breath, nausea or vomiting at this time. He still complains of some jaw soreness but not as bad as when it occurred 3 days ago. Currently, he feels well. Review of Systems Except as stated in HPI: all other systems reviewed are Neg Past Family Social History Past Medical History HIV 20 years, hyperlipidemia, anxiety, hypertension Past Surgical History Cardiac cath in 2018, kidney surgery, shoulder surgery, neck surgery, multiple cosmetic surgeries including his brows, lid and forehead lift and chin and pectoral implants Reported Medications Reported Meds & Active Scripts Active Reported Cetirizine (Cetirizine HCl) 10 Mg Tab 10 Mg PO DAILY Gabapentin 300 Mg Cap 300 Mg PO BID Alprazolam 0.5 Mg Tab 0.5 Mg PO Q4H PRN Potassium Chloride ER (Potassium Chloride) 10 Meq Cap 10 Meq PO DAILY Zolpidem (Zolpidem Tartrate) 10 Mg Tab 10 Mg PO HS PRN Atorvastatin (Atorvastatin Calcium) 40 Mg Tab 40 Mg PO HS Triumeq (Hehpeghf-Obqbheyrhldq-Bzqtndvkis) 600-50-300 Mg Tab 1 Tab PO DAILY Hazardous agent; use appropriate precautions for handling & disposal. Hydrochlorothiazide 25 Mg Tab 25 Mg PO DAILY Propranolol (Propranolol HCl) 20 Mg Tab 20 Mg PO DAILY Allergies: Coded Allergies: No Known Allergies (Unverified Allergy, Unknown, 06/11/17) Family History Mother had bone cancer, father had 6 heart attacks and throat cancer, sister has diabetes, brother at an [place] at age 50 Social History He quit smoking 7 years ago. He used to be a heavy smoker about a pack a day for 20 years. He denies any alcohol use but when he did used to drink socially. He admits that he used to be a drug addict, used to do powder cocaine and crystal meth however he quit 12 years ago. Physical Exam Vital Signs Vital Signs Date Time Temp Pulse Resp B/P (MAP) Pulse Ox O2 Delivery O2 Flow Rate FiO2 06/11/17 17:38 63 06/11/17 17:06 18 06/11/17 16:45 84 06/11/17 16:45 97.0 57 18 130/72 (91) 97 06/11/17 14:15 06/11/17 12:00 56 15 157/91 (113) 95 06/11/17 11:06 58 16 171/90 (117) 97 Room Air 06/11/17 09:18 59 21 172/103 (126) 97 Room Air 06/11/17 08:41 97.3 65 20 171/100 (123) 98 Physical Exam GENERAL: This is a well-nourished, well-developed patient, laying in bed, appears comfortable SKIN: Right groin with dressing dry clean and intact with no hematoma noted HEAD: Atraumatic. Normocephalic. No temporal or scalp tenderness. EYES: Pupils equal round and reactive. Extraocular motions intact. No scleral icterus. No injection or drainage. ENT: Nose without drainage. Airway patent. NECK: Trachea midline. CARDIOVASCULAR: Regular rate and rhythm without murmurs RESPIRATORY: Clear to auscultation. Breath sounds equal bilaterally. No wheezes GASTROINTESTINAL: Abdomen soft, non-tender, nondistended. No guarding. MUSCULOSKELETAL: Extremities without edema. Currently on bed rest however he is able to move his extremities with no difficulty. NEUROLOGICAL: Awake and alert. Normal speech. Laboratory Laboratory Tests Test 06/11/17 09:15 06/11/17 12:00 06/11/17 12:31 06/11/17 13:45 White Blood Count 10.4 Red Blood Count 5.25 Hemoglobin 16.1 Hematocrit 45.5 Mean Corpuscular Volume 86.7 Mean Corpuscular Hemoglobin 30.7 Mean Corpuscular Hemoglobin Concent 35.4 Red Cell Distribution Width 13.7 Platelet Count 190 Mean Platelet Volume 10.7 Neutrophils (%) (Auto) 49.9 Lymphocytes (%) (Auto) 35.4 Monocytes (%) (Auto) 10.9 Eosinophils (%) (Auto) 3.1 Basophils (%) (Auto) 0.7 Neutrophils # (Auto) 5.2 Lymphocytes # (Auto) 3.7 Monocytes # (Auto) 1.1 Eosinophils # (Auto) 0.3 Basophils # (Auto) 0.1 CBC Comment DIFF FINAL Differential Comment Prothrombin Time 10.6 Prothromb Time International Ratio 1.0 Activated Partial Thromboplast Time 25.5 25.7 69.9 Blood Urea Nitrogen 20 Creatinine 1.11 Random Glucose 116 Calcium Level 9.6 Magnesium Level 2.2 Sodium Level 140 Potassium Level 3.6 Chloride Level 105 Carbon Dioxide Level 27.1 Anion Gap 8 Estimat Glomerular Filtration Rate 67 Total Creatine Kinase 266 309 Creatine Kinase MB 19.0 28.1 Troponin I 5.21 7.66 Creatine Kinase MB % 9.1 Result Diagram: 06/11/1715 06/11/1715 Imaging Last Impressions Chest X-Ray 06/11/17 0854 Signed Impressions: Service Date/Time: Sunday, June 11, 2017 09:20 - CONCLUSION: 1. No acute cardiopulmonary disease. MD Tasha Fowler VTE Risk Assessment Rayrini VTE Risk Assessment: Mod/High Risk (score >= 2) Caprini Risk Assessment Model Point Value = 1 Point Value = 2 Point Value = 3 Point Value = 5 Age 41-60 Minor surgery BMI > 25 kg/m2 Swollen legs Varicose veins or History of unexplained or recurrent spontaneous Oral contraceptives or hormone replacement Sepsis (< 1 month) Serious lung disease, including pneumonia (< 1 month) Abnormal pulmonary function Acute myocardial infarction Congestive heart failure (< 1 month) History of inflammatory bowel disease Medical patient at bed rest Age 61-74 Arthroscopic surgery Major open surgery (> 45 min) Laparoscopic surgery (> 45 min) Malignancy Confined to bed (> 72 hours) Immobilizing plaster cast Central venous access Age >= 75 History of VTE Family history of VTE Factor V Leiden Prothrombin [id number] Lupus anticoagulant Anticardiolipin antibodies Elevated serum homocysteine Heparin-induced thrombocytopenia Other congenital or acquired thrombophilia Stroke (< 1 month) Elective arthroplasty Hip, pelvis, or leg fracture Acute spinal cord injury (< 1 month) Prophylaxis Regimen Total Risk Factor Score Risk Level Prophylaxis Regimen 0-1 Low Early ambulation 2 Moderate Order ONE of the following: *Sequential Compression Device (SCD) *Heparin 5000 units SQ BID 3-4 Higher Order ONE of the following medications: *Heparin 5000 units SQ TID *Enoxaparin/Lovenox 40 mg SQ daily (WT < 150 kg, CrCl > 30 mL/min) *Enoxaparin/Lovenox 30 mg SQ daily (WT < 150 kg, CrCl > 10-29 mL/min) *Enoxaparin/Lovenox 30 mg SQ BID (WT < 150 kg, CrCl > 30 mL/min) AND/OR *Sequential Compression Device (SCD) 5 or more Highest Order ONE of the following medications: *Heparin 5000 units SQ TID (Preferred with Epidurals) *Enoxaparin/Lovenox 40 mg SQ daily (WT < 150 kg, CrCl > 30 mL/min) *Enoxaparin/Lovenox 30 mg SQ daily (WT < 150 kg, CrCl > 10-29 mL/min) *Enoxaparin/Lovenox 30 mg SQ BID (WT < 150 kg, CrCl > 30 mL/min) AND *Sequential Compression Device (SCD) Assessment and Plan Assessment and Plan NSTEMI: Patient presented with chest pressure with radiation to his jaw and ear 3 days. Upon arrival to the ER EKG showed T-wave inversion and ST depressions. ER physician because contacted the motor scooter mechanic and started him on a heparin drip. Patient was taken to the [facility] and he is currently status post cardiac cath showing coronary artery disease with severe stenosis of the proximal and mid left anterior descending artery. Moderate to severe left ventricular dysfunction consistent with ischemic cardiomyopathy. Patient has been started on Brilinta, and aspirin. Also on Lipitor, Coreg, lisinopril. Cardiology following and appreciate Dr. More's assistance HIV: Resume home medication Hypertension: Initially elevated but now back to normal. On Coreg and lisinopril. Add Vasotec as needed Hyperlipidemia: On Lipitor DVT prophylaxis: SCD/Lovenox Code Status DNR Discussed Condition With Patient and family. Dr. More, ER physician Coco Maddox MD Jun 11, 2017 17:57
[2017-06-11] MEDS ORDERED: ENALAPRILAT 1.25 MG/ML VIAL IV PUSH PRN (18:15)
--- NOTE | 2017-06-11 20:41 | EKG ---
Date Performed: 06/11/2017 Time Performed: 08:57:16 PTAGE: 62 years EKG: Sinus rhythm WITH FREQUENT VENTRICULAR PREMATURE COMPLEXES MODERATE INTRAVENTRICULAR CONDUCTION DELAY ST DEVIATIO N AND MODERATE T-WAVE ABNORMALITY, CONSIDER ANTEROLATERAL ISCHEMIA ABNORMAL ECG PREVIOUS TRACING : 10/08/2015 14.44 Since the previous tracing, no significant change noted DOCTOR: Clinton Patel Interpretating Date/Time 06/11/2017 20:40:42
[2017-06-11 20:45] LABS: TROPONIN I 27.8 NG/ML (0.02-0.05)
[2017-06-11] MEDS: SODIUM CHLORIDE 0.9% FLUSH 10 ML FLUSH IV FLUSH SCH (20:57)
[2017-06-11] MEDS: ENOXAPARIN SODIUM 40 MG/0.4 ML SYRINGE SQ SCH (20:58)
[2017-06-11] MEDS: CARVEDILOL 6.25 MG TAB PO SCH (20:58)
[2017-06-11] MEDS: ATORVASTATIN 80 MG TAB PO SCH (20:58)
[2017-06-11] MEDS ORDERED: METOPROLOL TARTRATE 25 MG TAB PO SCH ×2 (21:00)
[2017-06-11] MEDS ORDERED: ATORVASTATIN 10 MG TAB PO SCH (21:00)
--- NOTE | 2017-06-11 21:47 | EKG ---
Date Performed: 06/11/2017 Time Performed: 18:04:22 PTAGE: 62 years EKG: Sinus rhythm with interpolated PVC(s) Lateral ST-T changes are nonspecific Compared to prior electrocardiogram, N onspecific T wave changes are less marked PREVIOUS TRACING : 06/11/2017 08.57 DOCTOR: Nile Carpenter Interpretating Date/Time 06/11/2017 21:47:25
[2017-06-12] VITALS (26 sets, daily range): BP systolic 98–132; BP diastolic 60–74; PULSE 65–80; RESP 18; TEMP 97.7–98.5; O2SAT 92–97
[2017-06-12] MEDS ORDERED: ZOLPIDEM TARTRATE 10 MG TAB PO PRN (00:15)
[2017-06-12] MEDS ORDERED: ALPRAZolam 0.5 MG TAB PO PRN (00:15)
[2017-06-12] MEDS ORDERED: ZOLPIDEM TARTRATE 5 MG TAB PO PRN (00:30)
[2017-06-12] MEDS: GABAPENTIN 300 MG CAP PO SCH ×3 (00:32→20:33)
[2017-06-12 01:35] LABS: AUTOMATED NEUTROPHIL # 8.6 TH/MM3 (1.8-7.7); BASOPHIL % 0.4 % (0.0-2.0); EOSINOPHIL # 0.2 TH/MM3 (0-0.4); EOSINOPHIL % 1.5 % (0.0-4.0); HEMATOCRIT 43.9 % (39.0-51.0); HEMOGLOBIN 15.6 GM/DL (13.0-17.0); LYMPH % 16.8 % (9.0-44.0); MEAN CELL VOLUME 86.2 FL (80.0-100.0); MEAN CORPUSCULAR HEMOGLOBIN 30.6 PG (27.0-34.0); MEAN CORPUSCULAR HGB CONC 35.5 % (32.0-36.0); MEAN PLATELET VOLUME 10.7 FL (7.0-11.0); MONOCYTE # 1.2 TH/MM3 (0-0.9); NEUT % 71.3 % (16.0-70.0); PLATELET COUNT 172 TH/MM3 (150-450); RED CELL DISTRIBUTION WIDTH 13.5 % (11.6-17.2)
[2017-06-12 01:54] LABS: BICARBONATE 25.8 MEQ/L (21.0-32.0); CREATININE 1.05 MG/DL (0.60-1.30)
[2017-06-12 01:57] LABS: CHOLESTEROL/ HDL RATIO 3.89 RATIO; HDL CHOLESTEROL 34.9 MG/DL (40.0-60.0)
[2017-06-12 02:37] LABS: TROPONIN I 32.6 NG/ML (0.02-0.05)
--- NOTE | 2017-06-12 07:26 | EKG ---
Date Performed: 06/12/2017 Time Performed: 05:55:58 PTAGE: 62 years EKG: Sinus rhythm with frequent PVCs Prolonged QT interval Poor R wave progression - probable normal variant Nonspecif ic ST and T wave abnormalities Abnormal ECG No significant change from prior electrocardiogram. PREVIOUS TRACING : 06/11/2017 18.04 DOCTOR: Nile Carpenter Interpretating Date/Time 06/12/2017 07:25:31
--- NOTE | 2017-06-12 08:29 | HHI.PR ---
Subjective Remarks Patient feels well. He did not sleep very well last night and required a sleeping pill. Denies any chest pain or chest pressure, denies any nausea or vomiting. He states that he felt a little flutter on his chest last night however it is no longer there. He is tolerating a diet. Objective Vitals Vital Signs Date Time Temp Pulse Resp B/P (MAP) Pulse Ox O2 Delivery O2 Flow Rate FiO2 06/12/17 08:00 98.5 74 18 106/61 (76) 96 06/12/17 08:00 74 06/12/17 07:00 72 06/12/17 06:11 69 06/12/17 05:11 66 06/12/17 04:25 97.7 71 98/60 (73) 92 06/12/17 04:00 73 06/12/17 03:00 70 06/12/17 02:00 72 06/12/17 01:00 70 06/12/17 00:00 66 06/11/17 23:55 97.8 65 104/75 (85) 96 06/11/17 23:00 74 06/11/17 22:00 68 06/11/17 21:00 72 06/11/17 20:00 70 06/11/17 19:00 97.7 73 156/99 (118) 96 06/11/17 19:00 78 06/11/17 18:47 76 06/11/17 17:38 63 06/11/17 17:06 18 06/11/17 16:45 84 06/11/17 16:45 97.0 57 18 130/72 (91) 97 06/11/17 14:15 06/11/17 12:00 56 15 157/91 (113) 95 06/11/17 11:06 58 16 171/90 (117) 97 Room Air 06/11/17 09:18 59 21 172/103 (126) 97 Room Air 06/11/17 08:41 97.3 65 20 171/100 (123) 98 I/O 06/11/17 06/11/17 06/11/17 06/12/17 06/12/17 06/12/17 07:00 15:00 23:00 07:00 15:00 23:00 Intake Total 1578 ml 480 ml Output Total 550 ml 650 ml Balance 1028 ml -170 ml Intake Oral 120 ml 480 ml IV Total 1458 ml Output Urine Total 550 ml 650 ml Result Diagram: 06/12/17 0124 06/12/17 0124 Imaging Last Impressions Chest X-Ray 06/11/17 0854 Signed Impressions: Service Date/Time: Sunday, June 11, 2017 09:20 - CONCLUSION: 1. No acute cardiopulmonary disease. Karthik Bailey MD Objective Remarks GENERAL: This is a well-nourished, well-developed patient, laying in bed, appears comfortable SKIN: Right groin with dressing dry clean and intact with no hematoma noted CARDIOVASCULAR: Regular rate and rhythm without murmurs RESPIRATORY: Clear to auscultation. Breath sounds equal bilaterally. No wheezes GASTROINTESTINAL: Abdomen soft, non-tender, nondistended. No guarding. MUSCULOSKELETAL: Extremities without edema. Moves his extremities with no difficulty. NEUROLOGICAL: Awake and alert. Normal speech. A/P Assessment and Plan STEMI: Patient presented with chest pressure with radiation to his jaw and ear 3 days prior to admission. Upon arrival to the ER EKG showed T-wave inversion and ST depressions. ER physician because contacted the bias machine operator and started him on a heparin drip. Patient was taken to the [facility] and he is currently status post cardiac cath showing coronary artery disease with severe stenosis of the proximal and mid left anterior descending artery. Moderate to severe left ventricular dysfunction consistent with ischemic cardiomyopathy. Patient currently on Brilinta, and aspirin. Also on Lipitor, Coreg, lisinopril. Cardiology following and appreciate Dr. More's assistance HIV: on home medication Hypertension: Initially elevated but now back to normal. On Coreg and lisinopril and HCTZ. on Vasotec as needed Hyperlipidemia: On Lipitor DVT prophylaxis: SCD/Lovenox Discharge Planning awaiting clearance from Coco Morley MD June 12, 2017 08:29
[2017-06-12] MEDS ORDERED: ASPIRIN EC 81 MG TABEC PO SCH (09:00)
[2017-06-12] MEDS: HYDROCHLOROTHIAZIDE 25 MG TAB PO SCH (09:00)
[2017-06-12] MEDS ORDERED: NON-FORMULARY DRUG (Abacavir-Dolutegravir-Lamivudine (Triumeq) 1 TAB) PO SCH (09:00)
[2017-06-12] MEDS: ABACAVIR SULFATE 300 MG TAB PO SCH (09:06)
[2017-06-12] MEDS: DOLUTEGRAVIR SODIUM 50 MG TAB PO SCH (09:07)
[2017-06-12] MEDS: POTASSIUM CHLORIDE 10 MEQ CAP PO SCH (09:09)
[2017-06-12] MEDS: LISINOPRIL 5 MG TAB PO SCH (09:09)
[2017-06-12] MEDS: TICAGRELOR 90 MG TAB PO SCH ×2 (09:10→20:33)
[2017-06-12] MEDS: CARVEDILOL 6.25 MG TAB PO SCH ×2 (09:10→20:32)
[2017-06-12] MEDS: ASPIRIN 81 MG CHEW TAB PO SCH (09:11)
[2017-06-12] MEDS: SODIUM CHLORIDE 0.9% FLUSH 10 ML FLUSH IV FLUSH SCH ×2 (09:11→20:34)
--- NOTE | 2017-06-12 18:55 | PD.CARD.PN ---
Subjective Subjective Remarks No CP or SOB, feels better Objective Medications Current Medications Medications (Trade) Dose Ordered Sig/Sam Route Start Time Stop Time Status Last Admin (NS Flush) 2 ml BID IV FLUSH 06/11/17 21:00 06/12/17 09:11 (NS Flush) 2 ml UNSCH PRN IV FLUSH 06/11/17 11:00 (Nitrostat Sl) 0.4 mg Q5M PRN SL 06/11/17 11:00 (Morphine Inj) 2 mg Q30M PRN IV PUSH 06/11/17 11:00 (Colace) 100 mg BID PRN PO 06/11/17 11:00 06/12/17 14:14 (Zofran Inj) 4 mg Q6H PRN IV PUSH 06/11/17 11:00 (Pill Splitter) 1 ea UNSCH PRN OTHER 06/11/17 11:30 (Lipitor) 80 mg HS PO 06/11/17 21:00 06/11/17 20:58 (Aspirin Chew) 81 mg DAILY PO 06/12/17 09:00 06/12/17 09:11 (Brilinta) 90 mg BID PO 06/12/17 09:00 06/12/17 09:10 (Coreg) 6.25 mg BID PO 06/11/17 21:00 06/12/17 09:10 (Prinivil) 5 mg DAILY PO 06/11/17 16:15 06/12/17 09:09 (Vasotec Inj) 1.25 mg Q6H PRN IV PUSH 06/11/17 18:15 (Lovenox Inj) 40 mg Q24H SQ 06/11/17 20:00 06/11/17 20:58 (Xanax) 0.5 mg Q4H PRN PO 06/12/17 00:15 (Neurontin) 300 mg BID PO 06/12/17 00:15 06/12/17 09:09 (Hydrodiuril) 25 mg DAILY PO 06/12/17 09:00 06/12/17 09:00 (KCl) 10 meq DAILY PO 06/12/17 09:00 06/12/17 09:09 (Ziagen) 600 mg DAILY PO 06/12/17 09:00 06/12/17 09:06 (Epivir) 300 mg DAILY PO 06/12/17 09:00 06/12/17 09:08 (Ambien) 10 mg HS PRN PO 06/12/17 00:30 06/12/17 00:32 Vital Signs / I&O Vital Signs Date Time Temp Pulse Resp B/P (MAP) Pulse Ox O2 Delivery O2 Flow Rate FiO2 06/12/17 17:00 71 06/12/17 16:00 68 06/12/17 16:00 98.5 74 18 132/74 (93) 96 06/12/17 15:00 65 06/12/17 14:00 71 06/12/17 13:00 68 06/12/17 12:00 70 06/12/17 11:21 98.4 67 18 124/62 (82) 96 06/12/17 11:00 67 06/12/17 10:00 70 06/12/17 09:00 68 06/12/17 08:00 98.5 74 18 106/61 (76) 96 06/12/17 08:00 74 06/12/17 07:00 72 06/12/17 06:11 69 06/12/17 05:11 66 06/12/17 04:25 97.7 71 98/60 (73) 92 06/12/17 04:00 73 06/12/17 03:00 70 06/12/17 02:00 72 06/12/17 01:00 70 06/12/17 00:00 66 06/11/17 23:55 97.8 65 104/75 (85) 96 06/11/17 23:00 74 06/11/17 22:00 68 06/11/17 21:00 72 06/11/17 20:00 70 06/11/17 19:00 97.7 73 156/99 (118) 96 06/11/17 19:00 78 06/11/17 18:47 76 I/O 06/11/17 06/11/17 06/11/17 06/12/17 06/12/17 06/12/17 07:00 15:00 23:00 07:00 15:00 23:00 Intake Total 1578 ml 480 ml 1080 ml Output Total 550 ml 650 ml 875 ml Balance 1028 ml -170 ml 205 ml Intake Oral 120 ml 480 ml 1080 ml IV Total 1458 ml Output Urine Total 550 ml 650 ml 875 ml # Bowel Movements 0 Physical Exam GENERAL: In NAD SKIN: Warm and dry. HEAD: Normocephalic. EYES: No scleral icterus. No injection or drainage. NECK: Supple, trachea midline. No JVD or lymphadenopathy. CARDIOVASCULAR: Regular rate and rhythm without murmurs, gallops, or rubs. RESPIRATORY: Breath sounds equal bilaterally. No accessory muscle use. GASTROINTESTINAL: Abdomen soft, non-tender, nondistended. MUSCULOSKELETAL: No cyanosis, or edema. Groin stable Laboratory Laboratory Tests Test 06/11/17 19:15 06/12/17 01:24 Activated Partial Thromboplast Time 27.9 SEC Total Creatine Kinase 437 U/L 378 U/L Creatine Kinase MB 43.1 NG/ML 30.4 NG/ML Creatine Kinase MB % 9.9 % 8.0 % Troponin I 27.80 NG/ML 32.60 NG/ML White Blood Count 12.0 TH/MM3 Red Blood Count 5.10 MIL/MM3 Hemoglobin 15.6 GM/DL Hematocrit 43.9 % Mean Corpuscular Volume 86.2 FL Mean Corpuscular Hemoglobin 30.6 PG Mean Corpuscular Hemoglobin Concent 35.5 % Red Cell Distribution Width 13.5 % Platelet Count 172 TH/MM3 Mean Platelet Volume 10.7 FL Neutrophils (%) (Auto) 71.3 % Lymphocytes (%) (Auto) 16.8 % Monocytes (%) (Auto) 10.0 % Eosinophils (%) (Auto) 1.5 % Basophils (%) (Auto) 0.4 % Neutrophils # (Auto) 8.6 TH/MM3 Lymphocytes # (Auto) 2.0 TH/MM3 Monocytes # (Auto) 1.2 TH/MM3 Eosinophils # (Auto) 0.2 TH/MM3 Basophils # (Auto) 0.0 TH/MM3 CBC Comment DIFF FINAL Differential Comment Blood Urea Nitrogen 17 MG/DL Creatinine 1.05 MG/DL Random Glucose 116 MG/DL Calcium Level 9.0 MG/DL Sodium Level 139 MEQ/L Potassium Level 3.3 MEQ/L Chloride Level 105 MEQ/L Carbon Dioxide Level 25.8 MEQ/L Anion Gap 8 MEQ/L Estimat Glomerular Filtration Rate 72 ML/MIN Triglycerides Level 167 MG/DL Cholesterol Level 136 MG/DL LDL Cholesterol 68 MG/DL HDL Cholesterol 34.9 MG/DL Cholesterol/HDL Ratio 3.89 RATIO Assessment and Plan Problem List: (1) NSTEMI (non-ST elevated myocardial infarction) ICD Codes: I21.4 - Non-ST elevation (NSTEMI) myocardial infarction Status: Acute (2) CAD (coronary artery disease) ICD Codes: I25.10 - Atherosclerotic heart disease of [place] coronary artery without angina pectoris (3) Stented coronary artery ICD Codes: Z95.5 - Presence of coronary angioplasty implant and graft (4) Ischemic cardiomyopathy ICD Codes: I25.5 - Ischemic cardiomyopathy (5) History of hypertension ICD Codes: Z86.79 - Personal history of other diseases of the circulatory system Status: Acute (6) History of hyperlipidemia ICD Codes: Z86.39 - Personal history of other endocrine, nutritional and metabolic disease Status: Acute (7) HIV (human immunodeficiency virus infection) ICD Codes: B20 - Human immunodeficiency virus [HIV] disease Assessment and Plan No angina or CHF. Infrequent PVCs. Continue Brilinta for 1 year and baby ASA indefinitely. Continue beta kimani, GUILLERMO inhibitor, and statin. Continue tx for CHF. Aggressive risk factor modification. Increase activity. Home tomorrow if stable. Recommend echo in 3 months to reevaluate LV fx. F/u w PCP and cardiology near his home in [place]. Cole More MD June 12, 2017 18:55
[2017-06-12] MEDS: ENOXAPARIN SODIUM 40 MG/0.4 ML SYRINGE SQ SCH (20:32)
[2017-06-12] MEDS: ATORVASTATIN 80 MG TAB PO SCH (20:33)
[2017-06-13] VITALS (11 sets, daily range): BP systolic 118–141; BP diastolic 60–67; PULSE 61–77; RESP 18; TEMP 97.8–98.3; O2SAT 92–97
[2017-06-13] MEDS ORDERED: ASPI81 PO (08:07)
[2017-06-13] MEDS ORDERED: CARV6.25 PO (08:07)
[2017-06-13] MEDS ORDERED: BRIL90TA PO (08:07)
[2017-06-13] MEDS ORDERED: ATOR80TA45 PO (08:07)
[2017-06-13] MEDS ORDERED: LISI10TA3 PO (08:07)
--- NOTE | 2017-06-13 08:34 | HHI.PR ---
Subjective Remarks Pt had one episode of nausea this morning which has now resolved. Denies any Chest pains, SOB, states to me that he had a sensation of flutter overnight but none at this time. Objective Vitals Vital Signs Date Time Temp Pulse Resp B/P (MAP) Pulse Ox O2 Delivery O2 Flow Rate FiO2 06/13/17 07:00 71 06/13/17 06:02 68 06/13/17 05:13 69 06/13/17 04:19 98.3 73 141/67 (91) 92 06/13/17 04:18 71 06/13/17 03:00 73 06/13/17 02:13 76 06/13/17 01:00 64 06/13/17 00:05 98.3 77 126/67 (86) 96 06/13/17 00:00 70 06/12/17 23:00 70 06/12/17 22:00 70 06/12/17 21:00 68 06/12/17 20:00 72 06/12/17 19:00 98.0 71 128/72 (90) 97 06/12/17 19:00 80 06/12/17 18:00 74 06/12/17 17:00 71 06/12/17 16:00 68 06/12/17 16:00 98.5 74 18 132/74 (93) 96 06/12/17 15:00 65 06/12/17 14:00 71 06/12/17 13:00 68 06/12/17 12:00 70 06/12/17 11:21 98.4 67 18 124/62 (82) 96 06/12/17 11:00 67 06/12/17 10:00 70 06/12/17 09:00 68 I/O 06/12/17 06/12/17 06/12/17 06/13/17 06/13/17 06/13/17 06:59 14:59 22:59 06:59 14:59 22:59 Intake Total 480 ml 1080 ml 240 ml Output Total 650 ml 875 ml 580 ml Balance -170 ml 205 ml -340 ml Intake Oral 480 ml 1080 ml 240 ml Output Urine Total 650 ml 875 ml 580 ml # Bowel Movements 0 1 Result Diagram: 06/12/17 0124 06/12/17 0124 Imaging Last Impressions Chest X-Ray 06/11/17 0854 Signed Impressions: Service Date/Time: Sunday, June 11, 2017 09:20 - CONCLUSION: 1. No acute cardiopulmonary disease. Karthik Bailey MD Objective Remarks GENERAL: sitting up on recliner CARDIOVASCULAR: Regular rate and rhythm without murmurs RESPIRATORY: Clear to auscultation. Breath sounds equal bilaterally. MUSCULOSKELETAL: Moves his extremities with no difficulty. NEUROLOGICAL: Awake and alert. Normal speech. A/P Assessment and Plan STEMI: Patient presented with chest pressure with radiation to his jaw and ear 3 days prior to admission. Upon arrival to the ER EKG showed T-wave inversion and ST depressions. ER physician because contacted the wire machine cutter and started him on a heparin drip. Patient was taken to the [facility] and he is currently status post cardiac cath showing coronary artery disease with severe stenosis of the proximal and mid left anterior descending artery. Moderate to severe left ventricular dysfunction consistent with ischemic cardiomyopathy. Patient currently on Brilinta, and aspirin. Also on Lipitor, Coreg, lisinopril. Cardiology following and appreciate Dr. More's assistance. Scripts in chart. Anticipate d/c later today after Dr. More sees pt and clears him. Pt to f/u w PCP and cards as an outpatient. HIV: on home medication Hypertension: continue BP meds Hyperlipidemia: On Lipitor DVT prophylaxis: SCD/Lovenox Discharge Planning ok to d/c home once cleared by Coco Maddox MD June 13, 2017 08:34
[2017-06-13] MEDS ORDERED: LISINOPRIL 10 MG TAB PO SCH (09:00)
[2017-06-13] MEDS: ABACAVIR SULFATE 300 MG TAB PO SCH (09:25)
[2017-06-13] MEDS: DOLUTEGRAVIR SODIUM 50 MG TAB PO SCH (09:25)
[2017-06-13] MEDS: CARVEDILOL 6.25 MG TAB PO SCH (09:26)
[2017-06-13] MEDS: POTASSIUM CHLORIDE 10 MEQ CAP PO SCH (09:26)
[2017-06-13] MEDS: HYDROCHLOROTHIAZIDE 25 MG TAB PO SCH (09:26)
[2017-06-13] MEDS: TICAGRELOR 90 MG TAB PO SCH (09:26)
[2017-06-13] MEDS: ASPIRIN 81 MG CHEW TAB PO SCH (09:26)
[2017-06-13] MEDS: GABAPENTIN 300 MG CAP PO SCH (09:27)
[2017-06-13] MEDS: SODIUM CHLORIDE 0.9% FLUSH 10 ML FLUSH IV FLUSH SCH (09:27)
--- NOTE | 2017-06-13 21:48 | PD.CARD.PN ---
Subjective Subjective Remarks No CP or SOB, few palpitations Objective Vital Signs / I&O Vital Signs Date Time Temp Pulse Resp B/P (MAP) Pulse Ox O2 Delivery O2 Flow Rate FiO2 06/13/17 08:00 97.8 61 18 118/60 (79) 97 06/13/17 08:00 68 06/13/17 07:00 71 06/13/17 06:02 68 06/13/17 05:13 69 06/13/17 04:19 98.3 73 141/67 (91) 92 06/13/17 04:18 71 06/13/17 03:00 73 06/13/17 02:13 76 06/13/17 01:00 64 06/13/17 00:05 98.3 77 126/67 (86) 96 06/13/17 00:00 70 06/12/17 23:00 70 06/12/17 22:00 70 I/O 06/12/17 06/12/17 06/12/17 06/13/17 06/13/17 06/13/17 07:00 15:00 23:00 07:00 15:00 23:00 Intake Total 480 ml 1080 ml 240 ml 450 ml Output Total 650 ml 875 ml 580 ml 400 ml Balance -170 ml 205 ml -340 ml 50 ml Intake Oral 480 ml 1080 ml 240 ml 450 ml Output Urine Total 650 ml 875 ml 580 ml 400 ml # Bowel Movements 0 1 0 Physical Exam GENERAL: In NAD SKIN: Warm and dry. HEAD: Normocephalic. EYES: No scleral icterus. No injection or drainage. NECK: Supple, trachea midline. No JVD or lymphadenopathy. CARDIOVASCULAR: Regular rate and rhythm without murmurs, gallops, or rubs. RESPIRATORY: Breath sounds equal bilaterally. No accessory muscle use. GASTROINTESTINAL: Abdomen soft, non-tender, nondistended. MUSCULOSKELETAL: No cyanosis, or edema. Groin stable Assessment and Plan Problem List: (1) NSTEMI (non-ST elevated myocardial infarction) ICD Codes: I21.4 - Non-ST elevation (NSTEMI) myocardial infarction Status: Acute (2) CAD (coronary artery disease) ICD Codes: I25.10 - Atherosclerotic heart disease of [place] coronary artery without angina pectoris (3) Stented coronary artery ICD Codes: Z95.5 - Presence of coronary angioplasty implant and graft (4) Ischemic cardiomyopathy ICD Codes: I25.5 - Ischemic cardiomyopathy (5) History of hypertension ICD Codes: Z86.79 - Personal history of other diseases of the circulatory system Status: Acute (6) History of hyperlipidemia ICD Codes: Z86.39 - Personal history of other endocrine, nutritional and metabolic disease Status: Acute (7) HIV (human immunodeficiency virus infection) ICD Codes: B20 - Human immunodeficiency virus [HIV] disease Assessment and Plan Remains stable. No angina or CHF. Infrequent PVCs. Continue Brilinta for 1 year and baby ASA indefinitely. Continue beta kimani, GUILLERMO inhibitor, and statin. Continue tx for CHF with beta kimani and GUILLERMO inhibitor. Aggressive risk factor modification, tx for dyslipidemia. DC home. F/u within 3 weeks. Recommend echo in 3 months to reevaluate LV fx. Also f/u w PCP and cardiology near his home in [place]. Cole More MD June 13, 2017 21:48
== END 2017-06-13 10:30 | disposition home or self-care (01) | DRG 247 ==
LOC: NEPC 08:38 → NEDA 11:18 → HCPC 16:03
PROVIDERS: ADMIT Hospitalist; ATTEND Hospitalist
PROC: 4A023N7 Measurement of Cardiac Sampling and Pressure, Left Heart, Percutaneous Approach (ICD-10-PCS; 2017-06-11)
PROC: B2151ZZ Fluoroscopy of Left Heart using Low Osmolar Contrast (ICD-10-PCS; 2017-06-11)
PROC: B2111ZZ Fluoroscopy of Multiple Coronary Arteries using Low Osmolar Contrast (ICD-10-PCS; 2017-06-11)
PROC: 027036Z Dilation of Coronary Artery, One Artery with Three Drug-eluting Intraluminal Devices, Percutaneous Approach (ICD-10-PCS; principal; 2017-06-11 14:00)
DX: I21.4 Non-ST elevation (NSTEMI) myocardial infarction (principal); I11.0 Hypertensive heart disease with heart failure; I50.9 Heart failure, unspecified; E78.5 Hyperlipidemia, unspecified; Z21 Asymptomatic human immunodeficiency virus [HIV] infection status; F10.21 Alcohol dependence, in remission; F15.21 Other stimulant dependence, in remission; I25.10 Atherosclerotic heart disease of native coronary artery without angina pectoris; I25.5 Ischemic cardiomyopathy; Z66 Do not resuscitate; I49.3 Ventricular premature depolarization; F41.9 Anxiety disorder, unspecified; Z82.49 Family history of ischemic heart disease and other diseases of the circulatory system; Z87.891 Personal history of nicotine dependence
CPT/HCPCS: 71045; 80048; 80061; 82550; 82552; 83735; 84484; 85002; 85025; 85610; 85730; 92928; 93005; 93458; 99152; 99153; C1725; C1760; C1769; C1874; C1887; C1893; G0269; J1644; J1650; J2250; J2405; J3010; J7030; Q9967

== ENCOUNTER 2017-06-30 16:11 | Observation (INO) | payer MEDICAID ==
[2017-06-30] VITALS (9 sets, daily range): BP systolic 123–221; BP diastolic 72–101; PULSE 55–63; RESP 16–18; TEMP 98.1–98.7; O2SAT 97–99
[~2017-06-30] VITALS: Ht 170.2 cm; Wt 80.0 kg
[~2017-06-30 16:11] MED LIST changes: +ALPR0.5T3 PO; +ASPI81 PO; -ATOR40TA PO; +ATOR80TA45 PO; +BRIL90TA PO; +CARV6.25 PO; +CETI10 PO; -GABA300C3 PO; +GABA300C5 PO; -HYDR-2768 PO; +HYDR25TA5 PO; +LISI10TA3 PO; +POTA10CA PO; -ZITH250T PO
[2017-06-30] MEDS ORDERED: SODIUM CHLORIDE 0.9% FLUSH 10 ML FLUSH IVF PRN (16:30)
--- NOTE | 2017-06-30 16:34 | PD ---
HPI Chief Complaint: Pain: Acute or Chronic Time Seen by Provider: 16:26 Travel History International Travel<30 days: No Contact w/Intl Traveler<30days: No Traveled to known affect area: No History of Present Illness HPI 62-year-old male with history of hypertension and CAD with recent stenting of the proximal and mid left anterior descending artery on June [address] More , presents to the emergency department for evaluation. Patient states last evening he was feeling weak. Today he began having a sensation of burning water through his ears and jaw pain. He states these were symptoms very similar to before his recent cardiac event. He reports that he felt nauseous, lightheaded, and shortness of breath with all of this. It comes and goes. Currently he is not having any symptoms. He denies any recent illnesses, fever , chills. He is taking Brilinta and a baby aspirin. He states he has been taking this as prescribed. He has no other symptoms to report. PFSH Past Medical History Arthritis: Yes Autoimmune Disease: Yes (HIV POSITIVE) Anxiety: Yes Depression: Yes Cancer: No Cardiovascular Problems: Yes High Cholesterol: Yes Endocrine: No Gastrointestinal Disorders: Yes Genitourinary: Yes Hypertension: Yes Immune Disorder: Yes Musculoskeletal: Yes Neurologic: No Psychiatric: Yes Reproductive: No Respiratory: No Past Surgical History Body Medical Devices: pectal implants Genitourinary Surgery: Yes (prostate and kidney ) Neurologic Surgery: No Other Surgery: Yes Social History Alcohol Use: No (SOBER 10 YEARS) Tobacco Use: No Substance Use: No Allergies-Medications (Allergen,Severity, Reaction): Coded Allergies: No Known Allergies (Unverified Allergy, Unknown, 06/11/17) Reported Meds & Prescriptions Reported Meds & Active Scripts Active Tgt Aspirin (Aspirin) 81 Mg Chw 81 Mg PO DAILY Atorvastatin (Atorvastatin Calcium) 80 Mg Tab 80 Mg PO HS Brilinta (Ticagrelor) 90 Mg Tab 90 Mg PO BID Reported Cetirizine (Cetirizine HCl) 10 Mg Tab 10 Mg PO DAILY Gabapentin 300 Mg Cap 300 Mg PO BID Alprazolam 0.5 Mg Tab 0.5 Mg PO Q4H PRN Potassium Chloride ER (Potassium Chloride) 10 Meq Cap 10 Meq PO DAILY Zolpidem (Zolpidem Tartrate) 10 Mg Tab 10 Mg PO HS PRN Triumeq (Goblqyao-Pzbgtehwthoa-Obafgqauwm) 600-50-300 Mg Tab 1 Tab PO DAILY Hazardous agent; use appropriate precautions for handling & disposal. Hydrochlorothiazide 25 Mg Tab 25 Mg PO DAILY Propranolol (Propranolol HCl) 20 Mg Tab 20 Mg PO DAILY Review of Systems Except as stated in HPI: all other systems reviewed are Neg Physical Exam Narrative GENERAL: Well-nourished male patient, no acute distress SKIN: Focused skin assessment warm/dry. HEAD: Atraumatic. Normocephalic. EYES: Pupils equal and round. No scleral icterus. No injection or drainage. ENT: No nasal bleeding or discharge. Mucous membranes pink and moist. NECK: Trachea midline. No JVD. CARDIOVASCULAR: Regular rate and rhythm. No murmur appreciated. RESPIRATORY: No accessory muscle use. Clear to auscultation. Breath sounds equal bilaterally. GASTROINTESTINAL: Abdomen soft, non-tender, nondistended. Hepatic and splenic margins not palpable. MUSCULOSKELETAL: No obvious deformities. No clubbing. No cyanosis. No edema. NEUROLOGICAL: Awake and alert. No obvious cranial nerve deficits. Motor grossly within normal limits. Normal speech. PSYCHIATRIC: Appropriate mood and affect; insight and judgment normal. Data Data Last Documented VS Vital Signs Date Time Temp Pulse Resp B/P (MAP) Pulse Ox O2 Delivery O2 Flow Rate FiO2 06/30/17 16:26 55 18 06/30/17 16:26 97 Nasal Cannula 2.00 06/30/17 16:18 98.1 221/91 (134) Orders Orders Electrocardiogram (06/30/17 16:16) Ckmb (Isoenzyme) Profile (06/30/17 16:16) Complete Blood Count With Diff (06/30/17 16:16) Comprehensive Metabolic Panel (06/30/17 16:16) Magnesium (Mg) (06/30/17 16:16) Prothrombin Time / Inr (Pt) (06/30/17 16:16) Act Partial Throm Time (Ptt) (06/30/17 16:16) Troponin I (06/30/17 16:16) Chest, Single Ap (06/30/17 16:16) Ecg Monitoring (06/30/17 16:16) Iv Access Insert/Monitor (06/30/17 16:16) Oximetry (06/30/17 16:16) Oxygen Administration (06/30/17 16:16) Sodium Chloride 0.9% Flush (Ns Flush) (06/30/17 16:30) CKMB (06/30/17 16:38) CKMB% (06/30/17 16:38) Admit Order (Ed Use Only) (06/30/17 18:14) Activity Bed Rest With Brp (06/30/17 18:14) Vital Signs (Adult) Q4H (06/30/17 18:14) Cardiac Rhythm .As Directed (06/30/17 18:14) Notify Dr: Other .PRN (06/30/17 18:14) Notify DrCarri Parameters (06/30/17 18:14) Resp Oxygen Nasal Cannula (06/30/17 ) Diet Npo (07/01/17 Breakfast) Diet Heart Healthy (06/30/17 Dinner) Ckmb (Isoenzyme) Profile (06/30/17 19:20) Ckmb (Isoenzyme) Profile (06/30/17 22:20) Troponin I (06/30/17 19:20) Troponin I (06/30/17 22:20) Electrocardiogram (06/30/17 19:20) Electrocardiogram (06/30/17 22:20) ^ Obtain (06/30/17 18:14) Sodium Chloride 0.9% Flush (Ns Flush) (06/30/17 18:15) Sodium Chloride 0.9% Flush (Ns Flush) (06/30/17 21:00) Acetaminophen (Tylenol) (06/30/17 18:15) Nitroglycerin Sl (Nitrostat Sl) (06/30/17 18:15) Retail Sales Advisor / Telemetry MEHUL.[id number] (06/30/17 18:14) Nadir Bilateral/Knee High MEHUL.QSHIFT (06/30/17 18:14) Labs Laboratory Tests Test 06/30/17 16:38 White Blood Count 9.5 TH/MM3 Red Blood Count 4.43 MIL/MM3 Hemoglobin 13.9 GM/DL Hematocrit 39.5 % Mean Corpuscular Volume 89.1 FL Mean Corpuscular Hemoglobin 31.3 PG Mean Corpuscular Hemoglobin Concent 35.1 % Red Cell Distribution Width 13.4 % Platelet Count 212 TH/MM3 Mean Platelet Volume 10.2 FL Neutrophils (%) (Auto) 48.1 % Lymphocytes (%) (Auto) 36.0 % Monocytes (%) (Auto) 10.6 % Eosinophils (%) (Auto) 4.6 % Basophils (%) (Auto) 0.7 % Neutrophils # (Auto) 4.6 TH/MM3 Lymphocytes # (Auto) 3.4 TH/MM3 Monocytes # (Auto) 1.0 TH/MM3 Eosinophils # (Auto) 0.4 TH/MM3 Basophils # (Auto) 0.1 TH/MM3 CBC Comment DIFF FINAL Differential Comment Prothrombin Time 10.6 SEC Prothromb Time International Ratio 1.0 RATIO Activated Partial Thromboplast Time 24.8 SEC Blood Urea Nitrogen 22 MG/DL Creatinine 1.21 MG/DL Random Glucose 82 MG/DL Total Protein 8.1 GM/DL Albumin 4.1 GM/DL Calcium Level 8.9 MG/DL Magnesium Level 2.4 MG/DL Alkaline Phosphatase 60 U/L Aspartate Amino Transf (AST/SGOT) 28 U/L Alanine Aminotransferase (ALT/SGPT) 28 U/L Total Bilirubin 0.6 MG/DL Sodium Level 144 MEQ/L Potassium Level 4.1 MEQ/L Chloride Level 110 MEQ/L Carbon Dioxide Level 25.3 MEQ/L Anion Gap 9 MEQ/L Estimat Glomerular Filtration Rate 61 ML/MIN Total Creatine Kinase 146 U/L Creatine Kinase MB 1.8 NG/ML Troponin I LESS THAN 0.02 NG/ML MDM Medical Decision Making Medical Screen Exam Complete: Yes Emergency Medical Condition: Yes Medical Record Reviewed: Yes Differential Diagnosis ACS versus vasospasm versus chest wall pain versus anxiety Narrative Course 62-year-old male presents emergency department for evaluation. Patient appears without distress. His vital signs are stable. Laboratory Tests Test 06/30/17 16:38 White Blood Count 9.5 TH/MM3 Red Blood Count 4.43 MIL/MM3 Hemoglobin 13.9 GM/DL Hematocrit 39.5 % Mean Corpuscular Volume 89.1 FL Mean Corpuscular Hemoglobin 31.3 PG Mean Corpuscular Hemoglobin Concent 35.1 % Red Cell Distribution Width 13.4 % Platelet Count 212 TH/MM3 Mean Platelet Volume 10.2 FL Neutrophils (%) (Auto) 48.1 % Lymphocytes (%) (Auto) 36.0 % Monocytes (%) (Auto) 10.6 % Eosinophils (%) (Auto) 4.6 % Basophils (%) (Auto) 0.7 % Neutrophils # (Auto) 4.6 TH/MM3 Lymphocytes # (Auto) 3.4 TH/MM3 Monocytes # (Auto) 1.0 TH/MM3 Eosinophils # (Auto) 0.4 TH/MM3 Basophils # (Auto) 0.1 TH/MM3 CBC Comment DIFF FINAL Differential Comment Prothrombin Time 10.6 SEC Prothromb Time International Ratio 1.0 RATIO Activated Partial Thromboplast Time 24.8 SEC Blood Urea Nitrogen 22 MG/DL Creatinine 1.21 MG/DL Random Glucose 82 MG/DL Total Protein 8.1 GM/DL Albumin 4.1 GM/DL Calcium Level 8.9 MG/DL Magnesium Level 2.4 MG/DL Alkaline Phosphatase 60 U/L Aspartate Amino Transf (AST/SGOT) 28 U/L Alanine Aminotransferase (ALT/SGPT) 28 U/L Total Bilirubin 0.6 MG/DL Sodium Level 144 MEQ/L Potassium Level 4.1 MEQ/L Chloride Level 110 MEQ/L Carbon Dioxide Level 25.3 MEQ/L Anion Gap 9 MEQ/L Estimat Glomerular Filtration Rate 61 ML/MIN Total Creatine Kinase 146 U/L Creatine Kinase MB 1.8 NG/ML Troponin I LESS THAN 0.02 NG/ML Last Impressions Chest X-Ray 06/30/17 1616 Signed Impressions: Service Date/Time: Friday, June 30, 2017 16:46 - CONCLUSION: No acute disease. Alfonzo Bentley MD I discussed patient with my attending physician. I have also discussed the patient with Dr. Valenzuela, tie layer covering for Dr. More. Patient will be admitted observation of chest pain center. Plan is discussed with the patient. He is in agreement with this plan of care. Diagnosis Primary Impression: Chest pain Qualified Codes: R07.9 - Chest pain, unspecified Admitting Information Admitting Physician Requests: Observation Condition: Stable LuiPrecious jacobson CHRISTINA June 30, 2017 16:34
[2017-06-30 16:51] LABS: AUTOMATED NEUTROPHIL # 4.6 TH/MM3 (1.8-7.7); BASOPHIL # 0.1 TH/MM3 (0-0.2); BASOPHIL % 0.7 % (0.0-2.0); EOSINOPHIL # 0.4 TH/MM3 (0-0.4); EOSINOPHIL % 4.6 % (0.0-4.0); HEMATOCRIT 39.5 % (39.0-51.0); HEMOGLOBIN 13.9 GM/DL (13.0-17.0); LYMPHOCYTE # 3.4 TH/MM3 (1.0-4.8); MEAN CELL VOLUME 89.1 FL (80.0-100.0); MEAN CORPUSCULAR HEMOGLOBIN 31.3 PG (27.0-34.0); MEAN CORPUSCULAR HGB CONC 35.1 % (32.0-36.0); MEAN PLATELET VOLUME 10.2 FL (7.0-11.0); MONO % 10.6 % (0.0-8.0); NEUT % 48.1 % (16.0-70.0); PLATELET COUNT 212 TH/MM3 (150-450); RED BLOOD COUNT 4.43 MIL/MM3 (4.50-5.90); RED CELL DISTRIBUTION WIDTH 13.4 % (11.6-17.2); WHITE BLOOD COUNT 9.5 TH/MM3 (4.0-11.0)
[2017-06-30 17:01] LABS: PROTHROMBIN TIME - PATIENT 10.6 SEC (9.8-11.6)
--- NOTE | 2017-06-30 17:09 | RADRPT ---
EXAM DATE/TIME: 06/30/2017 16:46 [facility] COMPARISON: CHEST SINGLE AP, June 11, 2017, 9:20. INDICATIONS : Chest pain and shortness of breath. MEDICAL HISTORY : Hypertension. HIV. SURGICAL HISTORY : Fusion, cervical. Neck cartilage surgery. 3 cardiac stents. ENCOUNTER: Initial ACUITY: 2 days PAIN SCORE: 2/10 LOCATION: chest FINDINGS: A single view of the chest demonstrates the lungs to be symmetrically aerated without evidence of mas s, infiltrate or effusion. The cardiomediastinal contours are unremarkable. Osseous structures are intact. CONCLUSION: No acute disease. Alfonzo Bentley MD on June 30, 2017 at 17:06 Board Certified Radiologist. This report was verified electronically.
[2017-06-30 17:28] LABS: ALBUMIN 4.1 GM/DL (3.4-5.0); ALKALINE PHOSPHATASE 60 U/L (45-117); ALT (GPT) 28 U/L (12-78); AST (GOT) 28 U/L (15-37); BICARBONATE 25.3 MEQ/L (21.0-32.0); BLOOD UREA NITROGEN 22 MG/DL (7-18); CALCIUM 8.9 MG/DL (8.5-10.1); CHLORIDE 110 MEQ/L (98-107); CREATININE 1.21 MG/DL (0.60-1.30); GLOMERULAR FILTRATION RATE 61 ML/MIN (>89); GLUCOSE,RANDOM 82 MG/DL (74-106); MAGNESIUM 2.4 MG/DL (1.5-2.5); SODIUM (NA) 144 MEQ/L (136-145); TOTAL BILIRUBIN ADULT 0.6 MG/DL (0.2-1.0); TOTAL PROTEIN 8.1 GM/DL (6.4-8.2); TROPONIN I LESS THAN 0.02 NG/ML (0.02-0.05)
[2017-06-30] MEDS ORDERED: NITROGLYCERIN 0.4 MG SL 25 TABS/BTL SL PRN (18:15)
[2017-06-30] MEDS ORDERED: SODIUM CHLORIDE 0.9% FLUSH 10 ML FLUSH IV FLUSH PRN (18:15)
[2017-06-30] MEDS ORDERED: NITROGLYCERIN 2% OINT 1 GM PACKET TOP ONE (18:30)
[2017-06-30] MEDS ORDERED: hydrALAZINE HCL 20 MG/ML VIAL IV PUSH ONE (19:00)
[2017-06-30 20:26] LABS: TROPONIN I LESS THAN 0.02 NG/ML (0.02-0.05)
[2017-06-30] MEDS: SODIUM CHLORIDE 0.9% FLUSH 10 ML FLUSH IV FLUSH SCH (21:00)
[2017-06-30] MEDS: ACETAMINOPHEN 500 MG CPLT PO PRN (22:32)
[2017-06-30 23:24] LABS: TROPONIN I LESS THAN 0.02 NG/ML (0.02-0.05)
[2017-07-01] VITALS (10 sets, daily range): BP systolic 124–195; BP diastolic 75–95; PULSE 53–60; RESP 16–20; TEMP 96–97.6; O2SAT 95–98
[2017-07-01] MEDS: ACETAMINOPHEN 500 MG CPLT PO PRN (06:03)
[2017-07-01] MEDS ORDERED: ONDANSETRON ODT 4 MG TAB PO PRN (08:45)
[2017-07-01] MEDS ORDERED: ASPIRIN 325 MG TAB PO SCH (09:00)
[2017-07-01] MEDS ORDERED: NON-FORMULARY DRUG (Abacavir-Dolutegravir-Lamivudine (Triumeq) 1 TAB) PO SCH (09:00)
[2017-07-01] MEDS ORDERED: PROPRANOLOL HCL 20 MG TAB PO SCH (09:00)
--- NOTE | 2017-07-01 09:24 | HHI.HP ---
[facility] Primary Care Physician Jaime De MD Chief Complaint Fatigue, jaw pain History of Present Illness 62-year-old male with history of coronary artery disease, NSTEMI 06/11/17 having 3 cardiac stents placed, hyperlipidemia, and hypertension since the ER for further evaluation of fatigue and left jaw pain. Sunday evening experienced sensation of bilateral ear "feeling up with burning water," headache , and not feeling well. Symptoms similar prior to diagnosed of NSTEMI. Sunday proceeded to go work. Reporting fatigue, racing heartbeat, and left jaw throbbing pain most of day. Denying chest pain, pressure, or tightness. Associated symptoms included intermittent nausea, dyspnea, and diaphoresis. No particular movement, position, or deep breathing makes pain better or worse. No known precipitating or relieving factors. Recently seen air traffic coordinator Sunday, Dr. Amos[place], reports being told to stop HCTZ and beta kimani until next appointment. Unable to recall reason medications discontinued. Since discharge 06/12/17 noted increased in headaches and "not back to feeling like myself." Due to presenting symptoms being similar to prior heart attack, decided to come the ER for further evaluation. Review of Systems General: Fatigue and not feeling well since Sunday. No weakness, fever, chills, or recent illness. HEENT: Headache resolved. No dysphasia CV: As stated above. No current chest pain, tightness, or pressure. No palpitations or dizziness. RESP: No SOB, cough, or wheeze GI: No nausea, vomiting, bowel changes, diarrhea, constipation, pain, or distention. History of hemorrhoids, stating he has "put off doing anything about hemorrhoids for at least one year." Increase amount of blood noted after bowel movements since beginning anticoagulation. No melena or fabiola blood in the stool. No change in appetite, no unintentional weight gain or weight loss : No dysuria, urgency, frequency, or hematuria EXT: No lower leg edema. Chronic paraesthesias bilateral feet MS: No discomfort, injury, or change in ROM NEURO: No change in memory, difficulty with balance, LOC, motor/sensory deficits PSYCH: No anxiety, depression, or suicidal ideation SKIN: No rashes, no concerning lesions Past Family Social History Allergies: Coded Allergies: No Known Allergies (Unverified Allergy, Unknown, 4/30/18) Past Medical History Coronary artery disease, 3 stents, hypertension, hyperlipidemia, HIV positive, neuropathy Past Surgical History Rectal implants, prostate surgery Reported Medications Reported Meds & Active Scripts Active Tgt Aspirin (Aspirin) 81 Mg Chw 81 Mg PO DAILY Atorvastatin (Atorvastatin Calcium) 80 Mg Tab 80 Mg PO HS Brilinta (Ticagrelor) 90 Mg Tab 90 Mg PO BID Cetirizine (Cetirizine HCl) 10 Mg Tab 10 Mg PO DAILY Gabapentin 300 Mg Cap 300 Mg PO BID Alprazolam 0.5 Mg Tab 0.5 Mg PO Q4H PRN Potassium Chloride ER (Potassium Chloride) 10 Meq Cap 10 Meq PO NEEDED BASIS Zolpidem (Zolpidem Tartrate) 10 Mg Tab 10 Mg PO HS PRN Triumeq (Ejbqbooj-Thwvgxtagrwq-Cxjjhxvswj) 600-50-300 Mg Tab 1 Tab PO DAILY Hazardous agent; use appropriate precautions for handling & disposal. RECENTLY STOPPED ON SUNDAY DIRECTED BY HIS OXYGEN THERAPIST Hydrochlorothiazide 25 Mg Tab 25 Mg PO DAILY Propranolol (Propranolol HCl) 20 Mg Tab 20 Mg PO DAILY Active Ordered Medications Current Medications Medications (Trade) Dose Ordered Sig/Sam Route Start Time Stop Time Status Last Admin (NS Flush) 2 ml UNSCH PRN IVF 06/30/17 16:30 (NS Flush) 2 ml UNSCH PRN IV FLUSH 06/30/17 18:15 (NS Flush) 2 ml BID IV FLUSH 06/30/17 21:00 (Tylenol) 500 mg Q4H PRN PO 06/30/17 18:15 07/01/17 06:03 (Nitrostat Sl) 0.4 mg Q5M PRN SL 06/30/17 18:15 (Zofran Odt) 4 mg Q6H PRN PO 07/01/17 08:45 (Lipitor) 80 mg HS PO 07/01/17 21:00 (Neurontin) 300 mg BID PO 07/01/17 09:00 (Brilinta) 90 mg BID PO 07/01/17 09:00 (Aspirin Chew) 81 mg DAILY PO 07/01/17 09:00 (Ziagen) 600 mg DAILY PO 07/01/17 10:00 (Epivir) 300 mg DAILY PO 07/01/17 10:00 Family History Positive for early onset cardiovascular disease. Brother age 50 myocardial infarction. Father coronary artery disease in mid 40s. Sister required coronary bypass in her 50s. Social History Known coronary artery disease, hypertension, and hyperlipidemia. No known diabetes. Former smoker, quitting 6 years ago. [id number] history. No alcohol 10 years , no methamphetamine 13 years. 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 Lives in [place]. Past cardiac testing 06/11/17 Cardiac Catheterization NSTEMI (Dr. More) Diagnoses: 1. 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 2. Moderate to severe left ventricular dysfunction consistent with ischemic cardiomyopathy. 3. Successful angioplasty and stenting of the proximal and mid left anterior descending artery. (Total of x3 cardiac stents placed- 1 mid LAD, 1 proximal and mid LAD, x1 proximal LAD in an overlapping manner). Physical Exam Vital Signs Vital Signs Date Time Temp Pulse Resp B/P (MAP) Pulse Ox O2 Delivery O2 Flow Rate FiO2 07/01/17 08:42 97 21 07/01/17 07:50 96.0 59 20 142/82 (102) 97 07/01/17 07:02 58 07/01/17 03:47 97.6 57 16 124/75 (91) 95 06/30/17 23:32 20 06/30/17 23:00 55 06/30/17 22:29 98.7 57 18 123/72 (89) 97 06/30/17 20:10 98.2 60 18 177/80 (112) 97 06/30/17 19:53 58 16 143/83 (103) 98 Room Air 06/30/17 19:48 60 16 179/101 (127) 99 Room Air 06/30/17 18:57 56 18 207/98 (134) 97 Room Air 06/30/17 18:19 60 18 194/85 (121) 97 Nasal Cannula 2.00 06/30/17 16:26 55 18 06/30/17 16:26 97 Nasal Cannula 2.00 06/30/17 16:24 97 Nasal Cannula 2.00 06/30/17 16:18 98.1 63 18 221/91 (134) 98 Physical Exam GENERAL: Alert WN, WD, NAD, pleasant, male HEAD: NC, AT EYES: Sclera clear, conjunctiva without injection, pupils equal and round ENT: Mucous membranes pink and moist NECK: Supple, no masses, trachea midline CV: RRR, without murmur, rub, gallop, no JVD, S1-S2 no S3-S4. RESP: Clear lungs throughout bilateral, no crackles, wheeze, rhonchi, symmetrical chest rise, nonlabored, able to speak in full sentences ABD: Soft, NT, ND, no masses, positive bowel tones EXT: Pulses +2x4, no dependent edema MS: Normal tone -4 extremities, no obvious deformities, full range of motion NEURO: CN II through CN XII grossly intact, motor strength 5/5 PSYCH: A+O x3, pleasant affect, appropriate speech, mood, insight and judgment SKIN: Normal turgor, normal texture, no lesions, no rashes, brisk cap refill, even hair distribution, multiple tattoos Laboratory Laboratory Tests Test 06/30/17 16:38 06/30/17 19:45 06/30/17 22:22 White Blood Count 9.5 Red Blood Count 4.43 Hemoglobin 13.9 Hematocrit 39.5 Mean Corpuscular Volume 89.1 Mean Corpuscular Hemoglobin 31.3 Mean Corpuscular Hemoglobin Concent 35.1 Red Cell Distribution Width 13.4 Platelet Count 212 Mean Platelet Volume 10.2 Neutrophils (%) (Auto) 48.1 Lymphocytes (%) (Auto) 36.0 Monocytes (%) (Auto) 10.6 Eosinophils (%) (Auto) 4.6 Basophils (%) (Auto) 0.7 Neutrophils # (Auto) 4.6 Lymphocytes # (Auto) 3.4 Monocytes # (Auto) 1.0 Eosinophils # (Auto) 0.4 Basophils # (Auto) 0.1 CBC Comment DIFF FINAL Differential Comment Prothrombin Time 10.6 Prothromb Time International Ratio 1.0 Activated Partial Thromboplast Time 24.8 Blood Urea Nitrogen 22 Creatinine 1.21 Random Glucose 82 Total Protein 8.1 Albumin 4.1 Calcium Level 8.9 Magnesium Level 2.4 Alkaline Phosphatase 60 Aspartate Amino Transf (AST/SGOT) 28 Alanine Aminotransferase (ALT/SGPT) 28 Total Bilirubin 0.6 Sodium Level 144 Potassium Level 4.1 Chloride Level 110 Carbon Dioxide Level 25.3 Anion Gap 9 Estimat Glomerular Filtration Rate 61 Total Creatine Kinase 146 117 113 Creatine Kinase MB 1.8 1.4 1.6 Troponin I LESS THAN 0.02 LESS THAN 0.02 LESS THAN 0.02 Result Diagram: 06/30/17 1638 06/30/17 1638 Imaging Last 48 hours Impressions Chest X-Ray 06/30/17 1616 Signed Impressions: Service Date/Time: Sunday, June 30, 2017 16:46 - CONCLUSION: No acute disease. Alfonzo Bentley MD Course EKG Normal sinus rhythm, no ST changes, T-wave inversions V--V5 Caprini VTE Risk Assessment Caprini VTE Risk Assessment: Mod/High Risk (score >= 2) Caprini Risk Assessment Model Point Value = 1 Point Value = 2 Point Value = 3 Point Value = 5 Age 41-60 Minor surgery BMI > 25 kg/m2 Swollen legs Varicose veins or History of unexplained or recurrent spontaneous Oral contraceptives or hormone replacement Sepsis (< 1 month) Serious lung disease, including pneumonia (< 1 month) Abnormal pulmonary function Acute myocardial infarction Congestive heart failure (< 1 month) History of inflammatory bowel disease Medical patient at bed rest Age 61-74 Arthroscopic surgery Major open surgery (> 45 min) Laparoscopic surgery (> 45 min) Malignancy Confined to bed (> 72 hours) Immobilizing plaster cast Central venous access Age >= 75 History of VTE Family history of VTE Factor V Leiden Prothrombin [id number] Lupus anticoagulant Anticardiolipin antibodies Elevated serum homocysteine Heparin-induced thrombocytopenia Other congenital or acquired thrombophilia Stroke (< 1 month) Elective arthroplasty Hip, pelvis, or leg fracture Acute spinal cord injury (< 1 month) Prophylaxis Regimen Total Risk Factor Score Risk Level Prophylaxis Regimen 0-1 Low Early ambulation 2 Moderate Order ONE of the following: *Sequential Compression Device (SCD) *Heparin 5000 units SQ BID 3-4 Higher Order ONE of the following medications: *Heparin 5000 units SQ TID *Enoxaparin/Lovenox 40 mg SQ daily (WT < 150 kg, CrCl > 30 mL/min) *Enoxaparin/Lovenox 30 mg SQ daily (WT < 150 kg, CrCl > 10-29 mL/min) *Enoxaparin/Lovenox 30 mg SQ BID (WT < 150 kg, CrCl > 30 mL/min) AND/OR *Sequential Compression Device (SCD) 5 or more Highest Order ONE of the following medications: *Heparin 5000 units SQ TID (Preferred with Epidurals) *Enoxaparin/Lovenox 40 mg SQ daily (WT < 150 kg, CrCl > 30 mL/min) *Enoxaparin/Lovenox 30 mg SQ daily (WT < 150 kg, CrCl > 10-29 mL/min) *Enoxaparin/Lovenox 30 mg SQ BID (WT < 150 kg, CrCl > 30 mL/min) AND *Sequential Compression Device (SCD) Assessment and Plan Assessment and Plan #1 Chest pain s/p recent cardiac stents placement-admitted to chest pain center. Ruled out 3 sets of EKGs, cardiac enzymes, monitor on telemetry overnight. Will be seen evaluated by Dr. Ramesh Umaña. Discussed likelihood of admitting patient to medical service and consulting Dr. Lugo. This will be determined after assessment by Dr. Ramesh Umaña. Patient agreeable to plan of care. Discussed plan of care with RN, continue baby aspirin, atorvastatin, Brilinta, and heart healthy diet ordered is no further cardiac testing anticipated at this time. Nitro 0.5" Q6H paste. #2 Hypertension-continue to monitor, apparently hydrochlorothiazide and propranolol recently discontinued. Restart Propranolol at lower dose 10 mg TID holding for HR less than 45. #3 History of HIV-continue Triumeq #4 History of hemorrhoids-Encouraged following up with PCP, no acute blood loss , stable HH, discussed anticoagulation benefits outweigh risks of not taking however should discuss his concern with PCP and his air traffic coordinator Bernarda Bradshaw July 01, 2017 09:24
[2017-07-01] MEDS: SODIUM CHLORIDE 0.9% FLUSH 10 ML FLUSH IV FLUSH SCH ×2 (09:31→21:47)
[2017-07-01] MEDS: ASPIRIN 81 MG CHEW TAB PO SCH (09:31)
[2017-07-01] MEDS: GABAPENTIN 300 MG CAP PO SCH ×2 (09:32→21:45)
[2017-07-01] MEDS: TICAGRELOR 90 MG TAB PO SCH ×2 (09:32→21:45)
[2017-07-01] MEDS: DOLUTEGRAVIR SODIUM 50 MG TAB PO SCH (11:43)
[2017-07-01] MEDS: ABACAVIR SULFATE 300 MG TAB PO SCH (11:44)
[2017-07-01] MEDS: NITROGLYCERIN 2% OINT 1 GM PACKET TOPICAL SCH ×2 (11:59→18:28)
[2017-07-01] MEDS: PROPRANOLOL HCL 10 MG TAB PO SCH ×3 (12:18→21:46)
--- NOTE | 2017-07-01 12:47 | EKG ---
Date Performed: 06/30/2017 Time Performed: 22:23:38 PTAGE: 62 years EKG: SINUS BRADYCARDIA WITH FIRST DEGREE AV BLOCK MODERATE T-WAVE ABNORMALITY, CONSIDER ANTEROLA TERAL ISCHEMIA ABNORMAL ECG WARNING: DATA QUALITY MAY AFFECT INTERPRETATION PREVIOUS TRACING : 06/30/2017 19.50 Since previous tracing, no significant change noted DOCTOR: Ramesh Umaña Interpretating Date/Time 07/01/2017 12:45:51
--- NOTE | 2017-07-01 12:47 | EKG ---
Date Performed: 06/30/2017 Time Performed: 19:50:57 PTAGE: 62 years EKG: SINUS BRADYCARDIA MODERATE T-WAVE ABNORMALITY, CONSIDER ANTEROLATERAL ISCHEMIA ABNORMAL ECG PREVIOUS TRACING : 06/30/2017 16.16 Since previous tracing, no significant change noted DOCTOR: Ramesh Umaña Interpretating Date/Time 07/01/2017 12:46:38
--- NOTE | 2017-07-01 12:51 | EKG ---
Date Performed: 06/30/2017 Time Performed: 16:16:57 PTAGE: 62 years EKG: Sinus rhythm MODERATE T-WAVE ABNORMALITY, CONSIDER ANTERIOR ISCHEMIA ABNORMAL ECG INTERPRETATION BASED ON A DEFAU LT AGE OF 41 YEARS PREVIOUS TRACING : 06/12/2017 05.55 Compared to previous tracing, PVCs no longer present. DOCTOR: Ramesh Umaña Interpretating Date/Time 07/01/2017 12:48:48
[2017-07-01] MEDS ORDERED: ATORVASTATIN 80 MG TAB PO SCH (21:00)
[2017-07-01] MEDS ORDERED: ZOLPIDEM TARTRATE 10 MG TAB PO PRN (22:15)
[2017-07-01] MEDS ORDERED: HYDROCHLOROTHIAZIDE 25 MG TAB PO ONE (22:15)
[2017-07-01] MEDS ORDERED: ALPRAZolam 0.5 MG TAB PO PRN (22:15)
[2017-07-02 00:32] VITALS: BP 119/74; PULSE 60; RESP 14; O2SAT 97
[2017-07-02] MEDS: NITROGLYCERIN 2% OINT 1 GM PACKET TOPICAL SCH ×2 (00:35→06:09)
[2017-07-02 01:03] VITALS: PULSE 54
[2017-07-02 04:14] VITALS: BP 119/78; PULSE 67; RESP 18; TEMP 97.7; O2SAT 93
[2017-07-02 06:07] VITALS: BP 163/89; PULSE 55
[2017-07-02] MEDS: PROPRANOLOL HCL 10 MG TAB PO SCH (06:10)
[2017-07-02 07:30] VITALS: PULSE 54
[2017-07-02 07:31] VITALS: BP 161/88; PULSE 56; RESP 16; TEMP 98; O2SAT 96
[2017-07-02] MEDS ORDERED: HYDROCHLOROTHIAZIDE 25 MG TAB PO SCH (09:00)
[2017-07-02] MEDS ORDERED: CETIRIZINE HCL 10 MG TAB PO SCH (09:00)
[2017-07-02] MEDS: GABAPENTIN 300 MG CAP PO SCH (09:08)
[2017-07-02] MEDS: ASPIRIN 81 MG CHEW TAB PO SCH (09:08)
[2017-07-02] MEDS: ABACAVIR SULFATE 300 MG TAB PO SCH (09:08)
[2017-07-02] MEDS: DOLUTEGRAVIR SODIUM 50 MG TAB PO SCH (09:08)
[2017-07-02] MEDS: TICAGRELOR 90 MG TAB PO SCH (09:09)
[2017-07-02] MEDS: SODIUM CHLORIDE 0.9% FLUSH 10 ML FLUSH IV FLUSH SCH (09:09)
[2017-07-02] MEDS ORDERED: NITR0.4S SL (09:52)
[2017-07-02] MEDS ORDERED: ISOS30TA3 PO (09:52)
--- NOTE | 2017-07-02 09:53 | HHI.PR ---
Subjective Remarks Follow-up chest pain. He is feeling better denies chest pain, jaw pain and fatigue. He wants to go home. He is complaining productive cough of whitish phlegm and throat discomfort. Denies fever or chills. Discussed with nursing Objective Vitals Vital Signs Date Time Temp Pulse Resp B/P (MAP) Pulse Ox O2 Delivery O2 Flow Rate FiO2 07/02/17 07:31 98.0 56 16 161/88 (112) 96 07/02/17 07:30 54 07/02/17 06:07 55 163/89 (113) 07/02/17 04:14 97.7 67 18 119/78 (92) 93 07/02/17 01:03 54 07/02/17 00:32 60 14 119/74 (89) 97 07/01/17 21:42 97.5 56 18 195/95 (128) 98 07/01/17 17:47 54 176/85 (115) 07/01/17 15:25 53 07/01/17 15:16 97.0 56 20 143/82 (102) 96 07/01/17 11:31 96.1 58 20 149/89 (109) 96 07/01/17 11:00 60 I/O 07/01/17 07/01/17 07/01/17 07/02/17 07/02/17 07/02/17 07:00 15:00 23:00 07:00 15:00 23:00 Intake Total 540 ml Balance 540 ml Intake Oral 540 ml # Voids 1 Result Diagram: 06/30/17 1638 06/30/17 1638 Imaging Last Impressions Chest X-Ray 06/30/17 1616 Signed Impressions: Service Date/Time: Friday, June 30, 2017 16:46 - CONCLUSION: No acute disease. Alfonzo Bentley MD Objective Remarks GENERAL: Alert WN, WD, NAD, pleasant, male Throat: Clear with no swelling or redness CV: RRR, without murmur, rub, gallop, no JVD, S1-S2 no S3-S4. RESP: Clear lungs throughout bilateral, no crackles, wheeze, rhonchi, symmetrical chest rise, nonlabored, able to speak in full sentences ABD: Soft, NT, ND, no masses, positive bowel tones EXT: Pulses +2x4, no dependent edema MS: Normal tone -4 extremities, no obvious deformities, full range of motion NEURO: CN II through CN XII grossly intact, motor strength 5/5 he PSYCH: A+O x3, pleasant affect, appropriate speech, mood, insight and judgment SKIN: Normal turgor, normal texture, no lesions, no rashes, brisk cap refill, even hair distribution, multiple tattoos Procedures NONE A/P Problem List: (1) Chest pain ICD Code: R07.9 - Chest pain, unspecified Status: Acute Assessment and Plan #1 Chest pain s/p recent cardiac stents placement-admitted to chest pain center. Ruled out 3 sets of EKGs and cardiac enzymes. CP free. Ct to monitor on telemetry, baby aspirin, atorvastatin, Brilinta, BB and heart healthy diet. 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 Does not recall any adverse reaction. Uncontrolled BP restart Propranolol at lower dose 10 mg TID holding for HR less than 45 and HCTZ. Also on nitrate #3 History of HIV-continue Triumeq #4 History of hemorrhoids-Encouraged following up with PCP, no acute blood loss , stable HH #[address] Zyrtec Discharge Planning Discharge patient to home Condition on discharge: Improved Regular Diet as tolerated Ad Rosa activity Rx written: [email or web address] Follow-up with primary care physician and cardiology Problem Qualifiers (1) Chest pain: Qualified Codes: R07.9 - Chest pain, unspecified Miguel Choi MD July 02, 2017 09:53
--- NOTE | 2017-07-02 09:54 | HHI.DCPOC ---
Discharge Care Plan Diagnosis: (1) Chest pain (2) Ischemic cardiomyopathy Your Health Problems Are: Difficulty with ADL Exercise Tolerance Goals to Promote Your Health * To prevent worsening of your condition and complications * To maintain your health at the optimal level Directions to Meet Your Goals Take your medications as prescribed Follow your dietary instruction Follow activity as directed Keep your appointments as scheduled Take your immunizations and boosters as scheduled If your symptoms worsen call your PCP, if no PCP go to Urgent Care Center or Emergency Room Smoking is Dangerous to Your Health. Avoid second hand smoke Call the 24-hour hour crisis hotline for domestic abuse at Miguel Choi MD July 02, 2017 09:54
== END 2017-07-02 11:39 | disposition home or self-care (01) ==
LOC: NEPC 16:11 → NEDA 18:17 → NEPFCDU 20:00
PROVIDERS: ADMIT Internal Medicine; ATTEND Internal Medicine
DX: R07.89 Other chest pain (principal); I25.5 Ischemic cardiomyopathy; I10 Essential (primary) hypertension; B20 Human immunodeficiency virus [HIV] disease; R51 Headache; R53.83 Other fatigue; R05 Cough; I44.0 Atrioventricular block, first degree; R00.1 Bradycardia, unspecified; R94.31 Abnormal electrocardiogram [ECG] [EKG]; I25.10 Atherosclerotic heart disease of native coronary artery without angina pectoris; E78.5 Hyperlipidemia, unspecified; G62.9 Polyneuropathy, unspecified; Z79.899 Other long term (current) drug therapy; Z79.82 Long term (current) use of aspirin; Z87.891 Personal history of nicotine dependence; Z95.5 Presence of coronary angioplasty implant and graft; Z82.49 Family history of ischemic heart disease and other diseases of the circulatory system
CPT/HCPCS: 71045; 80053; 82550; 82552; 83735; 84484; 85025; 85610; 85730; 93005; 96374; 99285; G0378; J0360